=== PATIENT | female | born 1955 | race Caucasian/White ===

== ENCOUNTER → 2017-04-20 | Outpatient (CLI) | payer OTHER ==
--- NOTE | 2017-04-20 11:38 | WWHP ---
[facility] - HISTORY AND PHYSICAL DATE OF DICTATION: 04/20/2017 CHIEF COMPLAINT: The patient is here for her routine gynecologic exam and mammogram. HPI: This is a 62-year-old G2, P2, with an LMP of 2009. The patient is without gynecologic complaints and denies any postmenopausal bleeding. She states she has noticed white patches of skin, mostly in the inner thigh areas. She denies any irritation, itching, or redness in these areas. She also denies any vulvar itching. PAST MEDICAL HISTORY: Hypothyroidism, elevated cholesterol and gastroesophageal reflux disease. MEDICATIONS: 1. Crestor 5 mg daily. 2. Levothyroxine 100 mcg daily. 3. Ranitidine p.r.n. ALLERGIES: CODEINE. PAST SURGICAL HISTORY: Colonoscopy 2015 and 2007. 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 Hemorrhoid remove removed in 1991. 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 SOCIAL HISTORY: She denies tobacco, alcohol, and drug use. 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 FAMILY HISTORY: Father had an [place]. REVIEW OF SYSTEMS: She has lost about 3 pounds over the last year. She denies respiratory, cardiac or GI problems. PHYSICAL EXAM: Blood pressure 135/84, height 5 feet 10 inches, weight 180 pounds, temperature 98.1, pulse 65, BMI 26. This is a well-developed, well-nourished, white female, who is alert and oriented x3, in no acute distress. SKIN: Patient has slightly less pigmented skin on her face. She also has a various white macules on the skin which are well-demarcated and appear symmetrical. This is most noticed in the inner thigh where she has areas with diameter of approximately 3 to 4 cm. She also has various areas on her arms and legs which are non-pigmented, which are smaller with diameters of 1 to 2 cm. HEENT is otherwise within normal limits. Neck is supple without mass or thyromegaly. CHEST AND LUNGS: Clear to auscultation. HEART: Regular rate and rhythm. Breasts are without mass or discharge. Axillary exam is negative for adenopathy. BACK: Negative for CVA tenderness. ABDOMEN: Soft, nontender, without palpable masses. PELVIC EXAM: External genitalia also reveals a well-demarcated, non-pigmented area surrounding the vulva, perineum, and perianal areas. She denies any symptoms such as pruritus or irritation. There are no focal lesions. There is mild to moderate atrophy noted. Cervix and vagina reveal mild to moderate atrophy without lesions. There is no evidence of prolapse. Bladder is well-supported. There is no significant urethral mobility with cough or Valsalva. The uterus is mid-position, nongravid size and nontender. There are no palpable adnexal masses or tenderness. Rectovaginal exam is negative for mass or tenderness and is negative for occult blood. EXTREMITIES: Nontender. IMPRESSION: A 62-year-old menopausal female with probable vitiligo involving mostly the inner thigh and vulva, otherwise unremarkable gynecologic exam. PLAN: 1. Pap smear was deferred since she had a normal one last year. 2. Self breast examination was discussed. 3. Mammogram will be done today. 4. We have had long discussion regarding the skin changes involving the non-pigmented areas. I have given her a handout on vitiligo. I have recommended that she discuss this with a envelope machine operator. She is declining this at this time, but states she will let me know if her symptoms are worsening or the areas are increasing. 5. Osteoporosis prevention was discussed. She states she did have a bone density test of her ankle at some screening program. I have recommended bone density testing on the hips and low back and she states she will plan on doing this next year. 6. She will return in 1 year. MMODL / IJN: [id number] /
--- NOTE | 2017-04-21 12:44 | MM ---
Reason for exam: screening (asymptomatic). Last mammogram was performed 1 year ago. History: Patient is postmenopausal. Benign right mammotome panel of the right breast, March 14, 2012. Took progesterone for 3 years 6 months. Physical Findings: A clinical breast exam by your physician is recommended on an annual basis and results should be correlated with mammographic findings. MG 3D Screening Mammo W/Cad Bilateral CC and MLO view(s) were taken. XCCL view(s) were taken of the left breast. Prior study comparison: April 17, 2016, left breast MG 3d diag mammo w/cad LT. October 15, 2015, bilateral MG diagnostic mammo w CAD LELA. May 25, 2013, CAD bilateral diagnostic mammogram. There are scattered fibroglandular densities. Finding #1: There is diminished architectural distortion in the anterior position of the right breast consistent with a healing scar. Finding #2: There are a few typically benign round calcifications in both breasts. Previous mammotome biopsy in the right breast. There is a chronic nodularity in the right breast. There is no discrete abnormality. ASSESSMENT: Benign, BI-RAD 2 RECOMMENDATION: Routine screening mammogram of both breasts in 1 year.
== END | disposition home or self-care (01) ==
LOC: WWCWWP 10:00
PROVIDERS: ATTEND Obstetrics & Gynecology
DX: Z12.31 Encounter for screening mammogram for malignant neoplasm of breast (principal)
CPT/HCPCS: 77063; G0202

== ENCOUNTER → 2018-03-07 | Outpatient (CLI) | payer OTHER ==
--- NOTE | 2018-03-07 10:09 | US ---
EXAMINATION TYPE: US thyroid st tissue head/neck DATE OF EXAM: 03/07/2018 COMPARISON: NONE CLINICAL HISTORY: E03.9 Hypothyroidism. taking thyroid meds for years GLAND SIZE: Right Lobe: 2.6 x 0.9 x 1.1 cm Overall Parenchyma: heterogenous Left Lobe: 2.9 x 0.8 x 0.9 cm Overall Parenchyma: heterogeneous Isthmus Thickness: 0.2 cm NODULES RIGHT: # of nodules measured on right: 0 LEFT: # of nodules measured on left: 0 ISTHMUS: # of nodules measured in the isthmus: 0 Bilateral neck scanned, no evidence of lymphadenopathy. IMPRESSION: Glandular heterogeneity with diminutive thyroid lobes.
== END | disposition home or self-care (01) ==
LOC: RADUSWWP 08:54
PROVIDERS: ATTEND Family Medicine
DX: E03.9 Hypothyroidism, unspecified (principal)
CPT/HCPCS: 76536

== ENCOUNTER 2018-03-16 11:31 | Day surgery (SDC) | payer MEDICARE, OTHER ==
[2018-03-09 14:57] VITALS: BMI 25.8
[~2018-03-16 11:31] MED LIST: LACTATED RINGERS 1,000 ML IV SCH; MORPHINE SULFATE 4 MG/ML SYRINGE IV PRN; ceFAZolin IN SWFI 2 GM/20 ML SYRINGE IVP ONE
[2018-03-16 11:43] VITALS: TEMP 98.4
[2018-03-16] MEDS ORDERED: ONDANSETRON 4 MG/2 ML VIAL ONE (11:51)
[2018-03-16] MEDS ORDERED: LIDOCAINE 1% 20 ML VIAL (10MG/ML) FOR IV START INTRADERMA ONE (12:00)
[2018-03-16] MEDS ORDERED: DEXAMETHASONE SOD PHOSPHATE 10 MG/ML 1 ML VIAL IV ONE (12:03)
[2018-03-16] MEDS ORDERED: ePHEDrine SULFATE/0.9% NACL/PF 50 MG/5 ML SYRINGE IV ONE (12:49)
[2018-03-16] MEDS ORDERED: MIDAZOLAM 2 MG/2 ML VIAL ONE (12:49)
[2018-03-16] MEDS ORDERED: HYDROmorphone (PF) 1 MG/ML ONE (12:49)
[2018-03-16] MEDS ORDERED: fentaNYL (PF) 50 MCG/ML 2 ML AMP ONE (12:49)
[2018-03-16] MEDS ORDERED: PROPOFOL 10 MG/ML 20 ML VIAL IV ONE (12:49)
[2018-03-16] MEDS ORDERED: ROPIVACAINE 5 MG/ML 30 ML VIAL ONE (12:49)
[2018-03-16] MEDS ORDERED: SUCCINYLCHOLINE CHLORIDE 100 MG/5 ML SYR IV ONE (12:49)
[2018-03-16] MEDS ORDERED: KETOROLAC 30 MG/ML 1 ML VIAL ONE (12:49)
[2018-03-16] MEDS ORDERED: LIDOCAINE 1% INJ 10MG/ML (20 ML MDV) ONE (12:49)
[2018-03-16] MEDS ORDERED: LACTATED RINGERS 1,000 ML IV ONE (14:45)
[2018-03-16] MEDS ORDERED: ONDANSETRON 4 MG/2 ML VIAL IVP ONE (15:35)
[2018-03-16] MEDS: HYDROmorphone 0.5 MG/0.5 ML SYRINGE IVP PRN ×2 (15:38→15:45)
--- NOTE | 2018-03-16 16:02 | FL ---
EXAMINATION TYPE: FL guidance operating room, XR foot limited LT DATE OF EXAM: 03/16/2018 CLINICAL HISTORY: Left foot pain TECHNIQUE: Fluoroscopy. COMPARISON: None. FINDINGS/IMPRESSION: Fluoroscopic guidance was provided during procedure performed by Dr. Mccormick. A total of 55 seconds of fluoroscopic time was utilized during the procedure and 3 spot images was a cquired during modified lapidus of the left foot
[2018-03-16 18:12] VITALS: BP 163/91; PULSE 69; RESP 16
--- NOTE | 2018-03-16 19:21 | P.ONQ ---
Anesthesiology Proc Note - PNB - Peripheral Nerve Block Performed Left Popliteal Single Time Out Performed: Yes Procedure Start Time: 14:09 Procedure Stop Time: 14:13 Indication: Acute Post-Operative Pain, Requested by physician Sedation Type: Sedate with meaningful contact maintained Preparation: Sterile Prep Needle Size: 50mm (2") Needle Gauge: 21 Technique: Ultrasound Injectate: 0.5% Ropivacaine (see comment for volume) (ropi .5% 20cc) Blood Aspirated: No Pain Paresthesia on Injection Noted: No Resistance on Injection: Normal Events: Uneventful and Well Tolerated
--- NOTE | 2018-03-17 08:51 | P.OP ---
Date of Procedure: 03/16/18 Preoperative Diagnosis: 1. Recurrent left hallux valgus deformity with increased 1-2 intermetatarsal angle and hypermobile first ray Postoperative Diagnosis: Same Procedure(s) Performed: 1. Correction of left recurrent hallux valgus deformity with modified Lapidus procedure 2. Modified Fitzgerald procedure, left foot 3. Application of short leg splint by physician, left leg Anesthesia: THIERRYA Surgeon: Edgar Mccormick Prevention Rn #1: Jeffrey Quinn Estimated Blood Loss (ml): 20 IV fluids (ml): 900 Pathology: none sent Condition: stable Disposition: PACU Indications for Procedure: The patient is a very pleasant, previously healthy 63-year-old female was had a long-standing history of problems with both of her feet. She previously underwent a distal first metatarsal osteotomy and medial eminence resection on the left foot by a hse manager. She had minimal improvement in her deformity and continued problems. She came to me to discuss treatment. She had failed nonsurgical treatment and requested surgery. My recommendation was to correct her recurrent hallux valgus with a modified Lapidus procedure. Due to the aggressive nature of her prior medial eminence resection and having had a distal first metatarsal osteotomy we discussed potential limitations and the amount of correction that could be obtained and the risk of hallux varus. The patient agreed and understand these risks and decided to go forward with surgery. We discussed the most common potential risks and complications including but not limited to risks of anesthesia, superficial infection, deep infection, delayed wound healing, damage to local blood vessels or nerves, nonunion at the fusion site, malunion to the fusion site, synthetic hardware, under correction of the deformity resulting in a recurrent or persistent hallux valgus deformity, hallux varus deformity from overcorrection of the deformity, transfer metatarsalgia, chronic pain, chronic swelling, inability to regain preinjury level of function, generalized to satisfaction with surgery, DVT, PE, need for further surgery, and possibly loss of life or limb. The patient voiced her understanding of this and provided her verbal and written consent to go forward with surgery. Operative Findings: I was able to nicely reduce the 1.2 intermetatarsal angle but there was still a mild hallux valgus deformity. For fear of over correcting his deformity and giving her a hallux varus I elected not to perform a medial capsulorrhaphy or Quinn osteotomy. Description of Procedure: The patient was identified in preoperative holding and the correct left leg was marked with my initials. I reviewed the consent form with the patient and her . All their questions were answered. The patient was then brought back to the operating room purchase position on the OR table where a general anesthetic and preoperative antibiotics were administered. The left leg had a bump placed under the buttock internally rotating the leg to neutral. A tourniquet was applied to the proximal aspect of the left thigh. The right leg was secured to the table. All bony prominences were well-padded. The left leg was then prepped and draped in the standard sterile fashion. Prior to starting surgery timeout was performed identifying the correct patient, operative extremity, and procedure. The patient's leg was then elevated, exsanguinated with an Esmarch bandage, the tourniquet was inflated to 250 mmHg. I began by outlining a longitudinal incision centered between the first and second metatarsals. Skin incision was made a scalpel. Dissection was carried down carefully to the subcutaneous tissue with tenotomy scissors. The EHL tendon sheath was incised and retracted laterally. The capsule over the first TMT joint was sharply incised longitudinally in line with the skin incision. The first TMT joint was then released dorsally and plantarly to allow for correction of the deformity. I then turned my attention distally. A small incision was made in the first webspace. Dissection was carried down carefully to the subcutaneous tissue with tenotomy scissors. The lateral capsule and sesamoid suspensory ligament were sharply released and a varus force was applied to the first MTP joint releasing adhesions and contracted lateral tissues. Attention was then turned back to the first TMT joint. A fulcrum was placed between the base of the first and second metatarsal. The compression device from the set was then placed with 1 maurizio over the lateral border of the second metatarsal through a stab incision and the compression device over the medial aspect of the first metatarsal. The device was gently tightened reducing the one 2 intermetatarsal angle. It was pinned into place. Position of the first metatarsal was checked with fluoroscopy. Rotation was also controlled prior to tightening the device with a joystick. A joint finder was placed into the first TMT joint. The cutting jig was placed over the first MT joint and its position was verified with fluoroscopy. It was pinned into place and a small microsagittal saw was used to remove the base of the first metatarsal and medial cuneiform. The intermetatarsal reduction device was removed as well as the cutting jig. Pins were left in the medial cuneiform and first metatarsal. The distraction, compression jig was placed. The joint was gently distracted and the cut portions of the bone was removed. The base of the medial cuneiform and first metatarsal were perforated with a 2.0 mm drill bit to facilitate fusion. The compression jig was then tightened nicely opposing the bony services and correcting the hallux valgus deformity. A cannulated, partially threaded 3.0 mm screw was placed starting at the lateral base of the first metatarsal and extending into the medial cuneiform. The compression jig was removed. Dual plates were placed dorsally and medially. A cannulated 3.5 mm screw was placed across the intercuneiform joint. On x-ray the 1-2 in her metatarsal angle was nicely reduced and there was adequate correction of the hallux valgus angle. Clinically the toe appeared significantly improved with only a mild hallux valgus deformity. I contemplated performing a medial capsulorrhaphy or Quinn osteotomy to further correct the hallux valgus deformity but due to the prior aggressive medial eminence resection I worried about over correcting her and tipping her into hallux varus. At this point final fluoroscopic images were taken. The wound was copiously irrigated and closed in layers. I verified that all instrument, sponge, and sharp counts were correct. A sterile dressing was applied followed by a well-padded bulky Hunt splint. The patient was then awoken from her anesthetic, transferred to a gurney, and brought to PACU having tolerated the procedure well. Jeffrey Quinn PA-C was required as a skilled nurses assistant throughout the procedure.
== END 2018-03-16 18:35 | disposition home or self-care (01) ==
LOC: OR 11:31
PROVIDERS: ATTEND Orthopaedic Surgery
DX: M20.12 Hallux valgus (acquired), left foot (principal); M21.612 Bunion of left foot; M20.11 Hallux valgus (acquired), right foot; M62.462 Contracture of muscle, left lower leg; M62.461 Contracture of muscle, right lower leg; E03.9 Hypothyroidism, unspecified; M47.814 Spondylosis without myelopathy or radiculopathy, thoracic region; K21.9 Gastro-esophageal reflux disease without esophagitis; E78.00 Pure hypercholesterolemia, unspecified; E55.9 Vitamin D deficiency, unspecified; M19.90 Unspecified osteoarthritis, unspecified site; M47.16 Other spondylosis with myelopathy, lumbar region; Z79.890 Hormone replacement therapy; Z79.899 Other long term (current) drug therapy
CPT/HCPCS: 73620; 28297; 64450; J1100; J2405; J1170; J0690

== ENCOUNTER → 2019-01-03 | Outpatient (CLI) | payer MEDICARE ==
[2019-01-03 13:56] VITALS: BP 149/91; PULSE 74; RESP 18; TEMP 98.4; BMI 26.5
--- NOTE | 2019-01-03 14:58 | P.HPOB ---
History of Present Illness H&P Date: 01/03/19 Chief Complaint: The patient is here for her routine gynecologic exam and ma mmogram. This is a 63-year-old with an LMP of 2008. The patient states she has had to urinary tract infections over the past 3 months. She was also told that she has small amounts of blood in the urine when tested by her primary care doctor. She has an appointment to see her urologist, Dr. Steve. The patient denies any postmenopausal bleeding. She is sexually active. She has experienced vaginal dryness and has been using a lubricant with some improvement. Review of Systems She is getting about 5 pounds over the past one and a half years. She denies respiratory, cardiac and G.I. problems. She denies maltreatment or problems with falling. : she denies any significant problems with urinary leakage. Past Medical History Past Medical History: GERD/Reflux, Hyperlipidemia, Osteoarthritis (OA), Thyroid Disorder Additional Past Medical History / Comment(s): Hypothyroidism. 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 [place] Bladder sling procedure, right breast biopsy. Hemorrhoid surgery. Colonoscopy 2016(2nd). Past Anesthesia/Blood Transfusion Reactions: No Reported Reaction Past Psychological History: No Psychological Hx Reported Smoking Status: Never smoker Past Alcohol Use History: Rare (One per month) Past Drug Use History: None Reported Additional History: She has been since 1979 and is sexually active. 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 - Past Family History Mother Family Medical History: No Reported History Father Family Medical History: Myocardial Infarction (DC) Medications and Allergies Home Medications Medication Instructions Recorded Confirmed Type L.acidoph,Paracasei, B.lactis 1 each PO DAILY 01/28/16 01/03/19 History [Probiotic] Digestive Enzymes 1 tab PO DAILY 03/09/18 01/03/19 History Glucosamine Sulfate 500 mg PO DAILY 03/09/18 01/03/19 History Levothyroxine Sodium [Synthroid] 75 mcg PO QAM 03/09/18 01/03/19 History Magnesium Aspartate 400 mg PO DAILY 03/09/18 01/03/19 History Pitavastatin Calcium [Livalo] 2 mg PO Q48H 03/09/18 01/03/19 History Potassium Citrate 99 mg PO DAILY 03/09/18 01/03/19 History Ranitidine HCl [Zantac] 150 mg PO DAILY PRN 03/09/18 01/03/19 History Vitamin C Gummies 1 tab PO DAILY 03/09/18 01/03/19 History Vitamin D3/Vitamin K2 1 tab PO DAILY 03/09/18 01/03/19 History Nitrofurantoin Monohyd/M-Cryst 100 mg PO Q12HR 01/03/19 01/03/19 History [Macrobid] Allergies Allergy/AdvReac Type Severity Reaction Status Date / Time No Known Allergies Allergy Verified 03/16/18 11:53 Exam Vital Signs Temp Pulse Resp BP Pulse Ox 01/03/19 13:50 98.4 F 74 18 149/91 99 Intake and Output 01/02/19 01/03/19 01/03/19 22:59 06:59 14:59 Other: Weight 83.915 kg Height 5'10", weight 185 pounds, BMI 26.5. This is a well-developed well-nourished white female who is alert and oriented times 3 in no acute distress. HEENT: Within normal limits. NECK: Supple without mass or thyromegaly. CHEST AND LUNGS: Clear to auscultation. HEART: Regular rate and rhythm. BREASTS: Are without mass or discharge. AXILLARY EXAM: Negative for adenopathy. BACK: Negative for CVA tenderness. ABDOMEN: Soft, nontender, without palpable masses. PELVIC EXAM: external genitalia reveals a well demarcated, non-pigmented area involving the vulva, perineum, and perianal areas. This appears similar to her previous exam and is most consistent with vitiligo. There is moderate vulvar atrophy. Cervix and vagina appear normal with mild to moderate atrophy. There is no unusual discharge. There is no evidence of prolapse. The uterus is midposition, nongravid size and nontender. There are no palpable adnexal masses or tenderness. RECTAL EXAM: rectovaginal exam is negative for mass or tenderness and is negative for occult blood. EXTREMITIES: Nontender. Skin: the patient has less pigmented areas on various parts of her body which is most noticeable on the vulva and inner thighs where there are less pigmented areas measuring 3 to 4 cm. These findings are consistent with her previous examination. IMPRESSION: 1. 63-year-old menopausal female with vitiligo involving different areas of her body including the external vulva and inner thighs. Stable from previous exam. 2. Moderate genital atrophy which may be causing vaginal dryness with sexual intercourse and may also increase the risk for urinary tract infections. 3. Two urinary tract infections over the past 3 months. She is currently taking Macrobid for this. 4. Elevated blood pressure. 5. History of osteopenia PLAN: 1. Pap smear was performed. 2. Self breast awareness was discussed with the patient. 3. Screening mammogram will be done today. 4. Trial of Premarin vaginal cream. She is to use to 1 g intravaginally twice weekly. She will also put a small amount near the urinary opening at those times. The electronic prescription will be sent to [facility] pharmacy in [place]. 5. She will follow-up with her urologist for micro hematuria which was diagnosed by her primary care physician. She has an appointment for this 6. She does not get flu shots in the fall. I have asked her to reconsider this. 7. I recommended that she checked her blood pressures at home on a regular basis since she does have a blood pressure cuff. She will follow-up with her primary care doctor for blood pressure elevations. 8.Osteoporosis prevention was discussed. I have stressed the importance of adequate calcium, vitamin D and regular exercise. Recommended amounts of calcium and vitamin D were also discussed. Bone density testing will be done today. 9. The patient was advised to return in 1-2 years for her well woman examination.
--- NOTE | 2019-01-03 15:25 | BD ---
EXAMINATION TYPE: Axial Bone Density DATE OF EXAM: 01/03/2019 COMPARISON: NONE CLINICAL HISTORY: post menopausal Height: 5'8 1/2 Weight: 181 FRAX RISK QUESTIONS: History of Fracture in Adulthood: y Secondary Osteoporosis: RISK FACTORS HISTORY OF: Family History of Osteoporosis: y Diet low in dairy products/other sources of calcium: y Postmenopausal woman: y If Premenopausal, do you have irregular periods: MEDICATIONS: Thyroid Medications: Which medication: Levothyroxine How Lon years Additional Medications: cholesterol Additional History: EXAM MEASUREMENTS: Bone mineral densitometry was performed using the [employer] System. Bone mineral density as measured about the Lumbar spine is: ----- L1-L4(G/cm2): 1.106 T Score Values are as follows: ----- L2: -0.9 ----- L3: -0.5 ----- L4: -0.3 ----- L1-L4: -0.6 Bone mineral density about the R hip (g/cm2): 0.802 Bone mineral density about the L hip (g/cm2): 0.733 T Score values are as follows: -----R Neck: -1.7 -----L Neck: -2.2 -----R Total: -2.0 -----L Total: -2.0 IMPRESSION: Osteopenia (T Score between -2.5 and -1). There is slightly increased risk of fracture and the patient may be considered for treatment. Re-Screen 2-5 years. NOTE: T-SCORE=SD OF THE YOUNG ADULT MEAN.
--- NOTE | 2019-01-04 14:46 | MM ---
Reason for exam: screening (asymptomatic). Last mammogram was performed 1 year and 9 months ago. History: Patient is postmenopausal. Benign right mammotome panel of the right breast, March 14, 2012. Took progesterone for 3 years 6 months. MG 3D Screening Mammo W/Cad Bilateral CC and MLO view(s) were taken. Prior study comparison: April 20, 2017, bilateral MG 3d screening mammo w/cad. April 17, 2016, left breast MG 3d diag mammo w/cad LT. There are scattered fibroglandular densities. There are benign-appearing bilateral breast calcifications. No suspicious abnormality. There is post biopsy changes in the right breast. No significant new finding when compared with prior studies. ASSESSMENT: Benign, BI-RAD 2 RECOMMENDATION: Routine screening mammogram of both breasts in 1 year.
--- NOTE | 2019-01-11 10:45 | P.PN ---
Progress Note - Text Progress Note Date: 01/11/19 OUTPATIENT FOLLOW-UP NOTE TEST(S)/RESULTS: results from 01/03/2019 include benign mammogram and bone density testing showing osteopenia. METHOD OF NOTIFICATION: the patient was notified by phone. PATIENT COMMENTS: the patient states her previous bone density test was done at [facility]. DIAGNOSIS: benign mammogram and osteopenia. DISCUSSION: Pap smear result is pending. I have stressed the importance of adequate calcium, vitamin D and regular exercise. PLAN: we will plan on repeating the bone density testing in 2 to 3 years. Await Pap smear results. I will call the patient on the Pap smear results after it has been reviewed.
== END | disposition home or self-care (01) ==
LOC: WWCWWP 13:44
PROVIDERS: ATTEND Obstetrics & Gynecology
DX: Z12.31 Encounter for screening mammogram for malignant neoplasm of breast (principal); Z78.0 Asymptomatic menopausal state
CPT/HCPCS: 77063; 77067; 77080

== ENCOUNTER → 2019-02-02 | Outpatient (CLI) | payer MEDICARE ==
--- NOTE | 2019-02-02 09:07 | CT ---
EXAMINATION TYPE: CT abdomen pelvis wo con DATE OF EXAM: 02/02/2019 HISTORY: Abdominal pain, stones in bladder CT DLP: 579.5 mGycm. Automated Exposure Control for Dose Reduction was Utilized. TECHNIQUE: CT scan of the abdomen and pelvis is performed without oral or IV contrast. COMPARISON: NONE FINDINGS: Within the limitations of a non-contrast study, the following observations are made. LUNG BASES: No significant abnormality is appreciated. LIVER/GB: Two dependent calcified gallstones in gallbladder. No surrounding inflammatory changes. Sca ttered subcentimeter low dense lesions throughout the liver are too small to further characterize. Th ere is 1.3 cm lesion subcapsular level anteriorly image 26 consistent with simple thin-walled cyst. PANCREAS: No significant abnormality is seen. SPLEEN: No significant abnormality is seen. ADRENALS: No significant abnormality is seen. KIDNEYS: No renal calculi or hydronephrosis. No intraluminal calculus in bladder. Scattered pelvic ph leboliths are present bilaterally. BOWEL: Evaluation bowel slightly suboptimal secondary to lack of enteric contrast. Stomach is poorly distended and thus suboptimally evaluated. Normal-appearing appendix ascends from cecum slightly low- lying in the right pelvis. There are few diverticula in the sigmoid colon. There is no CT evidence fo r acute diverticulitis. GENITAL ORGANS: Anteverted uterus is seen. There is 2.0 cm rounded low dense lesion right ovary axial image 117. Left ovary is unremarkable axial image 123. LYMPH NODES: No greater than 1cm abdominal or pelvic lymph nodes are appreciated. OSSEOUS STRUCTURES: Mild facet arthropathy lower lumbar levels. OTHER: No significant additional abnormality is seen. IMPRESSION: 1. No acute finding is identified to account for patient symptoms. 2. No renal or bladder calculi. 3. Gallstones without CT evidence for acute cholecystitis. 4. Sigmoid colonic diverticula without CT evidence for acute diverticulitis. 5. There is 2.0 cm low dense lesion right ovary, this is abnormal finding in a postmenopausal female, follow-up pelvic ultrasound advised to better evaluate and characterize.
== END | disposition home or self-care (01) ==
LOC: RADCTMAIN 08:03
PROVIDERS: ATTEND Family Medicine
DX: K80.20 Calculus of gallbladder without cholecystitis without obstruction (principal); K57.30 Diverticulosis of large intestine without perforation or abscess without bleeding; N83.8 Other noninflammatory disorders of ovary, fallopian tube and broad ligament; Z78.0 Asymptomatic menopausal state
CPT/HCPCS: 74176

== ENCOUNTER → 2019-02-13 | Outpatient (CLI) | payer MEDICARE ==
--- NOTE | 2019-02-13 08:22 | US ---
EXAMINATION TYPE: US pelvic complete DATE OF EXAM: 02/13/2019 COMPARISON: CT February 02, 2019 CLINICAL HISTORY: N83.9 Lesion of Ovary. Recent CT showed right ov cyst, LLQ pain for a few months, b ladder sling sx, no h/o cysts previous that patient was aware of TECHNIQUE: TA. Transabdominal sonographic images of the pelvis were acquired. Date of LMP: 10yrs ago EXAM MEASUREMENTS: Uterus: 7.9 x 4.8 x 3.7 cm Endometrial Stripe: 0.3 cm Right Ovary: 1.9 x 2.6 x 2.0 cm Left Ovary: 1.9 x 1.8 x 1.9 cm 1. Uterus: Anteverted wnl 2. Endometrium: wnl 3. Right Ovary: 2.0cm simple appearing cyst 4. Left Ovary: wnl 5. Bilateral Adnexa: wnl 6. Posterior cul-de-sac: wnl Anteverted uterus is redemonstrated. Endometrial stripe within normal limits. No free fluid. Right ov axel shows 2.0 cm simple appearing thin walled cyst on current study which correlates with CT finding. Left ovary is within normal limits. IMPRESSION: Confirmation of 2.0 cm simple appearing thin-walled cyst or cystic lesion within right ov axel, this is abnormal finding in postmenopausal female, at minimum annual ultrasound surveillance is advised.
== END | disposition home or self-care (01) ==
LOC: RADUSWWP 07:25
PROVIDERS: ATTEND Family Medicine
DX: N83.291 Other ovarian cyst, right side (principal)
CPT/HCPCS: 76856

== ENCOUNTER → 2019-05-17 | Outpatient (CLI) | payer MEDICARE | END | disposition home or self-care (01) | LOC: LABWHC1 09:54 | PROVIDERS: ATTEND Internal Medicine Endocrinology, Diabetes & Metabolism | DX: E03.8 Other specified hypothyroidism (principal) | CPT/HCPCS: 36415; 84443 ==

== ENCOUNTER → 2019-11-07 | Outpatient (CLI) | payer MEDICARE | END | disposition home or self-care (01) | LOC: LABWHC1 10:34 | PROVIDERS: ATTEND Internal Medicine Endocrinology, Diabetes & Metabolism | DX: E03.8 Other specified hypothyroidism (principal); E03.9 Hypothyroidism, unspecified | CPT/HCPCS: 36415; 84443 ==

== ENCOUNTER → 2019-11-08 | Outpatient (CLI) | payer MEDICARE ==
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
== END | disposition home or self-care (01) ==
LOC: RADMRIMAIN 12:42
PROVIDERS: ATTEND Family Medicine
DX: M99.71 Connective tissue and disc stenosis of intervertebral foramina of cervical region (principal); M48.02 Spinal stenosis, cervical region; M50.223 Other cervical disc displacement at C6-C7 level; M43.12 Spondylolisthesis, cervical region
CPT/HCPCS: 72141

== ENCOUNTER → 2020-01-12 | Outpatient (CLI) | payer MEDICARE | END | disposition home or self-care (01) | LOC: LABWHC1 12:42 | PROVIDERS: ATTEND Internal Medicine Endocrinology, Diabetes & Metabolism | DX: E03.8 Other specified hypothyroidism (principal) | CPT/HCPCS: 36415; 84443 ==

== ENCOUNTER → 2020-02-20 | Outpatient (CLI) | payer MEDICARE ==
[2020-02-20 09:26] VITALS: BP 141/94; PULSE 68; RESP 18; TEMP 98.2
--- NOTE | 2020-02-20 10:02 | P.HPOB ---
History of Present Illness H&P Date: 02/20/20 Chief Complaint: The patient is here for her routine gynecologic exam and ma mmogram. This is a 65-year-old with an LMP of 2008. The patient has been using Premarin vaginal cream for vaginal dryness with intercourse and because of recurrent UTIs. She states it has helped with the recurrent UTIs. She did try to go without the Premarin vaginal cream briefly, but developed a UTI during that time. She has resumed using the Premarin vaginal cream. She denies any discomfort from the known right ovarian cyst which has been followed conservatively. She denies any postmenopausal bleeding. She is without gynecologic complaints. Review of Systems The patient's weight has been stable over the last year. She denies respiratory, cardiac, or G.I. problems. Past Medical History Past Medical History: GERD/Reflux, Hyperlipidemia, Osteoarthritis (OA), Thyroid Disorder Additional Past Medical History / Comment(s): Hypothyroidism. Osteopenia. 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 [place] Bladder sling procedure, right breast biopsy. Hemorrhoid surgery. Colonoscopy 2016(2nd). Past Anesthesia/Blood Transfusion Reactions: No Reported Reaction Past Psychological History: No Psychological Hx Reported Smoking Status: Never smoker Past Alcohol Use History: Rare (1/Month) Past Drug Use History: None Reported Additional History: She has been since 1979 and is sexually active. 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 - Past Family History Mother Family Medical History: No Reported History Father Family Medical History: Myocardial Infarction ([place]) Medications and Allergies Home Medications Medication Instructions Recorded Confirmed Type L.acidoph,Paracasei, B.lactis 1 each PO DAILY 01/28/16 02/20/20 History [Probiotic] Digestive Enzymes 1 tab PO DAILY 03/09/18 02/20/20 History Glucosamine Sulfate 500 mg PO DAILY 03/09/18 02/20/20 History Levothyroxine Sodium [Synthroid] 100 mcg PO QAM 03/09/18 02/20/20 History Magnesium Aspartate 400 mg PO DAILY 03/09/18 02/20/20 History Pitavastatin Calcium [Livalo] 2 mg PO Q48H 03/09/18 02/20/20 History Potassium Citrate 99 mg PO DAILY 03/09/18 02/20/20 History Vitamin C Gummies 1 tab PO DAILY 03/09/18 02/20/20 History Vitamin D3/Vitamin K2 1 tab PO DAILY 03/09/18 02/20/20 History Estrogens, Conjugated Cream 1 gram VAGINAL DIRECTED #1 tube 01/03/19 02/20/20 Rx [Premarin Cream] Nitrofurantoin Monohyd/M-Cryst 100 mg PO Q12HR 01/03/19 02/20/20 History [Macrobid] Famotidine [Pepcid] 0 mg PO DAILY PRN 02/20/20 02/20/20 History RABEprazole SODIUM [Aciphex] 20 mg PO DAILY 02/20/20 02/20/20 History Allergies Allergy/AdvReac Type Severity Reaction Status Date / Time No Known Allergies Allergy Verified 02/20/20 09:31 Exam Vital Signs Temp Pulse Resp BP Pulse Ox 02/20/20 09:21 98.2 F 68 18 141/94 100 Intake and Output 02/19/20 02/20/20 02/20/20 22:59 06:59 14:59 Other: Weight 84.368 kg Height 5 feet 10 inches, weight 186 pounds, BMI 26.7. This is a well-developed well-nourished white female who is alert and oriented times 3 in no acute distress. HEENT: Within normal limits. NECK: Supple without mass or thyromegaly. CHEST AND LUNGS: Clear to auscultation. HEART: Regular rate and rhythm. BREASTS: Are without mass or discharge. AXILLARY EXAM: Negative for adenopathy. BACK: Negative for CVA tenderness. ABDOMEN: Soft, nontender, without palpable masses. PELVIC EXAM: The patient has less pigmented areas on the vulva and inner thighs. The inner thigh nonpigmented areas measure between 3 and 4 cm and are stable from her previous examination. She denies any pruritus or irritation from this areas. Cervix and vagina appear normal with mild atrophy. There is no unusual discharge. There is no evidence of prolapse. The uterus is midposition, nongravid size and nontender. There are no palpable adnexal masses or tendern ess. RECTAL EXAM: rectovaginal exam is negative for mass or tenderness and is negative for occult blood. EXTREMITIES: Nontender. IMPRESSION: 1. 65-year-old menopausal female with vitiligo involving the external vulva and inner thighs which is stable from her previous examination. 2. Improvement of recurrent urinary tract infections with Premarin vaginal cream. This is also used for vaginal dryness with sexual intercourse. 3. History of osteopenia. 4. Asymptomatic right ovarian cyst after the menopause measuring approximately 2.0 cm last year by pelvic ultrasound. PLAN: 1. Pap smear was deferred since she had a normal one on 01/03/2019. 2. Self breast awareness was discussed with the patient. 3. Screening mammogram will be done today. 4. Osteoporosis prevention was discussed. I have stressed the importance of adequate calcium, vitamin D and regular exercise. Recommended amounts of calcium and vitamin D were also discussed. We will repeat bone density testing in 1 year. 5. I recommended repeating the pelvic ultrasound to reevaluate the right ovarian cyst. The order slip was given to the patient for this. 6. She was advised to return in one year for her annual well woman exam.
--- NOTE | 2020-02-21 11:35 | MM ---
Reason for exam: screening (asymptomatic). Last mammogram was performed 1 year and 2 months ago. History: Patient is postmenopausal. Benign right mammotome panel of the right breast, March 14, 2012. Took progesterone for 3 years 6 months. Taking other hormone for 1 year 6 months. Physical Findings: A clinical breast exam by your physician is recommended on an annual basis and results should be correlated with mammographic findings. MG 3D Screening Mammo W/Cad Bilateral CC and MLO view(s) were taken. Prior study comparison: January 03, 2019, bilateral MG 3d screening mammo w/cad. April 20, 2017, bilateral MG 3d screening mammo w/cad. There are scattered fibroglandular densities. There are benign appearing round calcifications bilaterally. Previous mammotome biopsy in the right breast. There is chronic nodularity in the right breast inferior position. Asymmetric breast tissue right clip stable from 2016. There is no discrete abnormality. ASSESSMENT: Benign, BI-RAD 2 RECOMMENDATION: Routine screening mammogram of both breasts in 1 year.
== END | disposition home or self-care (01) ==
LOC: WWCWWP 09:14
PROVIDERS: ATTEND Obstetrics & Gynecology
DX: Z12.31 Encounter for screening mammogram for malignant neoplasm of breast (principal)
CPT/HCPCS: 77063; 77067

== ENCOUNTER → 2020-04-04 | Outpatient (CLI) | payer MEDICARE ==
--- NOTE | 2020-04-04 17:01 | US ---
EXAMINATION TYPE: US pelvic complete DATE OF EXAM: 04/04/2020 COMPARISON: US pelvis 02/14/2020. CT abdomen pelvis 02/02/2019. CLINICAL HISTORY: N83 Ovarian Cyst Rt Side. TECHNIQUE: . Transabdominal sonographic images of the pelvis were acquired. Date of LMP: Age 53 EXAM MEASUREMENTS: Uterus: 8.0 x 3.3 x 3.7 cm Endometrial Stripe: 0.2 cm Right Ovary: 2.5 x 2.1 x 2.0 cm Left Ovary: 1.9 x 1.1 x 1.3 cm 1. Uterus: Anteverted normal. 2. Endometrium: Normal. 3. Right Ovary: Simple unilocular benign-appearing cyst measures 1.7 x 1.7 x 1.8 cm. Previously daniel ured 2cm on 02/14/2020 comparison. 4. Left Ovary: Normal. 5. Bilateral Adnexa: Normal. 6. Posterior cul-de-sac: Normal. IMPRESSION: 1. Simple benign appearing 1.8 cm right ovarian cyst. Per The Society of Radiologists in Ultrasound 2 019 recommendations, no additional follow-up is recommended. 2. Otherwise unremarkable pelvic ultrasound.
--- NOTE | 2020-04-09 18:21 | P.PN ---
Progress Note - Text Progress Note Date: 04/09/20 OUTPATIENT FOLLOW-UP NOTE TEST(S)/RESULTS: Pelvic ultrasound done on 04/04/2020 shows a right simple benign appearing ovarian cyst measuring 1.8 cm. METHOD OF NOTIFICATION: Was notified by phone. PATIENT COMMENTS: [] DIAGNOSIS: 1.8 cm right ovarian simple cyst in a postmenopausal female. DISCUSSION: This cyst has been followed since last year and was originally approximately 2.0 cm. PLAN: Repeat cervical ultrasound in one year. If smaller at that time, consider discontinuing yearly ultrasounds.
== END | disposition home or self-care (01) ==
LOC: RADUSWWP 14:36
PROVIDERS: ATTEND Obstetrics & Gynecology
DX: N83.291 Other ovarian cyst, right side (principal)
CPT/HCPCS: 76856

== ENCOUNTER → 2020-04-24 | Outpatient (CLI) | payer MEDICARE | END | disposition home or self-care (01) | LOC: LABWHC1 15:32 | PROVIDERS: ATTEND Internal Medicine Endocrinology, Diabetes & Metabolism | DX: E03.8 Other specified hypothyroidism (principal) | CPT/HCPCS: 36415; 84443 ==

== ENCOUNTER → 2020-10-03 | Outpatient (CLI) | payer MEDICARE | END | disposition home or self-care (01) | LOC: LABWHC1 12:32 | PROVIDERS: ATTEND Internal Medicine Endocrinology, Diabetes & Metabolism | DX: E03.8 Other specified hypothyroidism (principal) | CPT/HCPCS: 36415; 84443 ==

== ENCOUNTER → 2021-03-12 | Outpatient (CLI) | payer MEDICARE ==
[2021-03-12 09:15] VITALS: BP 144/84; PULSE 81; RESP 18; TEMP 98.6
--- NOTE | 2021-03-12 10:22 | P.HPOB ---
History of Present Illness H&P Date: 03/12/21 Chief Complaint: The patient is here for her routine gynecologic exam. This is a 66-year-old with an LMP of 2008. The patient is without gynecologic complaints and denies any postmenopausal bleeding. The patient had a surgery earlier this year and noticed a slight rash in her groin and thigh areas and was not sure if this was related to Premarin vaginal cream use, so she discontinued it. She has continued to notice some rash in those areas, but it is improving. She would like to continue to hold the Premarin vaginal cream usage at this time. Review of Systems Weight has been stable. She denies respiratory, cardiac and G.I. problems. She denies maltreatment or problems with falling. : she denies any significant problems with urinary leakage. Past Medical History Past Medical History: GERD/Reflux, Hyperlipidemia, Osteoarthritis (OA), Thyroid Disorder Additional Past Medical History / Comment(s): Hypothyroidism. Osteopenia. 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 [place] Bladder sling procedure, right breast biopsy. Hemorrhoid surgery. Neck surgery. Colonoscopy 2016(2nd). Past Anesthesia/Blood Transfusion Reactions: No Reported Reaction Past Psychological History: No Psychological Hx Reported Smoking Status: Never smoker Past Alcohol Use History: Rare (1 per year) Past Drug Use History: None Reported Additional History: She has been since 1979 and is sexually active. 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 - Past Family History Mother Family Medical History: No Reported History Father Family Medical History: Myocardial Infarction ([place]) Medications and Allergies Home Medications Medication Instructions Recorded Confirmed Type L.acidoph,Paracasei, B.lactis 1 each PO DAILY 01/28/16 03/12/21 History [Probiotic] Digestive Enzymes 1 tab PO DAILY 03/09/18 03/12/21 History Glucosamine Sulfate 500 mg PO DAILY 03/09/18 03/12/21 History Levothyroxine Sodium [Synthroid] 100 mcg PO QAM 03/09/18 03/12/21 History Magnesium Aspartate 400 mg PO DAILY 03/09/18 03/12/21 History Potassium Citrate 99 mg PO DAILY 03/09/18 03/12/21 History Vitamin C Gummies 1 tab PO DAILY 03/09/18 03/12/21 History Vitamin D3/Vitamin K2 1 tab PO DAILY 03/09/18 03/12/21 History Famotidine [Pepcid] 0 mg PO DAILY PRN 02/20/20 03/12/21 History RABEprazole SODIUM [Aciphex] 20 mg PO DAILY 02/20/20 03/12/21 History Allergies Allergy/AdvReac Type Severity Reaction Status Date / Time No Known Allergies Allergy Verified 03/12/21 09:06 Exam Vital Signs Temp Pulse Resp BP Pulse Ox 03/12/21 09:08 98.6 F 81 18 144/84 99 Intake and Output 03/11/21 03/12/21 03/12/21 22:59 06:59 14:59 Other: Weight 85.275 kg Height 5 feet 10 inches, weight 188 pounds, BMI 27.0. This is a well-developed well-nourished white female who is alert and oriented times 3 in no acute distress. HEENT: Within normal limits. NECK: Supple without mass or thyromegaly. CHEST AND LUNGS: Clear to auscultation. HEART: Regular rate and rhythm. BREASTS: Are without mass or discharge. AXILLARY EXAM: Negative for adenopathy. There is a small 1.5 cm lipoma on the inner arm bordering the axilla. This has a benign appearance and is soft and nontender and not inflamed. 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 BACK: Negative for CVA tenderness. ABDOMEN: Soft, nontender, without palpable masses. PELVIC EXAM: The external genitalia has less pigmented areas involving the vulva and perineal areas. These do not appear inflamed or erythematous. There are no focal lesions noted. She also has less pigmented areas on the inner thighs. These areas on the inner thighs measuring approximately 3-4 cm and are stable from her previous exam. She denies any pruritus or irritation from these areas. Cervix and vagina appear normal with mild atrophy. The cervix is somewhat stenotic secondary to atrophy There is no unusual discharge. There is no evidence of prolapse. The uterus is midposition, nongravid size and nontender. There are no palpable adnexal masses or tenderness. RECTAL EXAM: rectovaginal exam is negative for mass or tenderness and is negative for occult blood. EXTREMITIES: Nontender. IMPRESSION: 1. 66-year-old menopausal female with vitiligo involving the external vulva and inner thighs which is stable from her previous examination. 2. History of osteopenia. 3. History of postmenopausal right ovarian cyst measuring 1.8 cm by ultrasound one year ago. This is asymptomatic. 4. The patient had previously been using Premarin vaginal cream for vaginal dryness and recurrent urinary tract infections. She is currently not using this. I doubt that the rash that she noticed on her thighs earlier in the year is related to the Premarin vaginal cream. She will call to let me know if she wants to restart the Premarin vaginal cream. PLAN: 1. Pap smear was performed. If this one is negative we will plan on discontinuing Pap smears. She has no history of cervical neoplasia and this will give us 3 negative Pap smears during the past 10 years. 2. Self breast awareness was discussed with the patient. We have also discussed symptoms associated with inflammatory breast cancer. 3. Screening mammogram is scheduled for 03/18/2021. The order slip was given t o the patient for this. 4. Osteoporosis prevention was discussed. I have stressed the importance of adequate calcium, vitamin D and regular exercise. Recommended amounts of calcium and vitamin D were also discussed. I recommended repeating bone density testing. The order slip was given the patient for this. 5. We will again do a yearly pelvic ultrasound because of her postmenopausal ovarian cyst. The order slip was given to the patient for this. 6. She has received the [employer] Covid vaccination. She does not plan on getting a flu shot this fall. I have asked her to reconsider this and we have discussed reasons why this is important. 7. I have asked her to have the pattern grader supervisor examine the vitiligo on the inner thighs and vulva at her appointment this upcoming week. 8. She was advised to return in one year for her annual well woman exam.
== END ==
LOC: WWCWWP 08:54
PROVIDERS: ATTEND Obstetrics & Gynecology
DX: Z12.31 Encounter for screening mammogram for malignant neoplasm of breast (principal); Z01.419 Encounter for gynecological examination (general) (routine) without abnormal findings; L80 Vitiligo; N89.8 Other specified noninflammatory disorders of vagina; E78.5 Hyperlipidemia, unspecified; E03.9 Hypothyroidism, unspecified; M19.90 Unspecified osteoarthritis, unspecified site; Z87.39 Personal history of other diseases of the musculoskeletal system and connective tissue; Z87.440 Personal history of urinary (tract) infections; K21.9 Gastro-esophageal reflux disease without esophagitis; Z79.899 Other long term (current) drug therapy

== ENCOUNTER → 2021-03-18 | Outpatient (CLI) | payer MEDICARE ==
--- NOTE | 2021-03-20 13:48 | MM ---
Reason for exam: screening (asymptomatic). Last mammogram was performed 1 year and 1 month ago. History: Patient is postmenopausal. Benign right mammotome panel of the right breast, March 14, 2012. Took progesterone for 3 years 6 months. Taking other hormone for 1 year 6 months. Physical Findings: A clinical breast exam by your physician is recommended on an annual basis and results should be correlated with mammographic findings. MG 3D Screening Mammo W/Cad Bilateral CC and MLO view(s) were taken. Prior study comparison: February 20, 2020, bilateral MG 3d screening mammo w/cad. January 03, 2019, bilateral MG 3d screening mammo w/cad. There are scattered fibroglandular densities. No significant changes when compared with prior studies. ASSESSMENT: Benign, BI-RAD 2 RECOMMENDATION: Routine screening mammogram of both breasts in 1 year.
== END | disposition home or self-care (01) ==
LOC: RADMAMWWP 13:08
PROVIDERS: ATTEND Obstetrics & Gynecology
DX: Z12.31 Encounter for screening mammogram for malignant neoplasm of breast (principal); Z78.0 Asymptomatic menopausal state
CPT/HCPCS: 77063; 77067

== ENCOUNTER → 2021-04-02 | Outpatient (CLI) | payer MEDICARE | END | disposition home or self-care (01) | LOC: LABWHC1 16:03 | PROVIDERS: ATTEND Internal Medicine Endocrinology, Diabetes & Metabolism | DX: E03.8 Other specified hypothyroidism (principal) | CPT/HCPCS: 36415; 84443 ==

== ENCOUNTER → 2021-04-11 | Outpatient (CLI) | payer MEDICARE ==
--- NOTE | 2021-04-11 15:44 | US ---
EXAMINATION TYPE: US pelvic complete DATE OF EXAM: 04/11/2021 COMPARISON: NONE CLINICAL HISTORY: N83.0 RT ovarian cyst. Follow up on right ovarian cyst, G2, P2 TECHNIQUE: Transabdominal (TA). Transabdominal sonographic images of the pelvis were acquired. Date of LMP: At age 50 EXAM MEASUREMENTS: Uterus: 8.4 x 4.3 x 2.9 cm Endometrial Stripe: 0.3cm Right Ovary: 2.0 x 2.0 x 1.9 cm Left Ovary: 2.5 x 1.4 x 1.7 cm 1. Uterus: Anteverted wnl 2. Endometrium: Echogenic 3. Right Ovary: Cystic area 4. Left Ovary: Hypoehoic Spectral, color and waveform doppler imaging shows good arterial and venous flow within the ovaries ; there is no evidence for ovarian torsion. 5. Bilateral Adnexa: wnl 6. Posterior cul-de-sac: wnl Right ovarian cyst seen on prior exam 1.6 x 1.6 x 1.7 IMPRESSION: 1. Right ovarian cyst.
== END | disposition home or self-care (01) ==
LOC: RADUSWWP 14:22
PROVIDERS: ATTEND Obstetrics & Gynecology
DX: N83.201 Unspecified ovarian cyst, right side (principal)
CPT/HCPCS: 76856

== ENCOUNTER → 2021-09-23 | Outpatient (CLI) | payer MEDICARE ==
--- NOTE | 2021-09-24 08:40 | BD ---
EXAMINATION TYPE: Axial Bone Density DATE OF EXAM: 09/23/2021 COMPARISON: NONE CLINICAL HISTORY: 66 year old Female. ICD-10 CODE: Z78.0 post menopausal Height: 69 Weight: 182.9 FRAX RISK QUESTIONS: Alcohol (3 or more units per day): no Family History (Parent hip fracture): no Glucocorticoids (More than 3mos): no (Ex: prednisone, prednisolone, methylprednisolone, dexamethasone, and hydrocortisone). History of Fracture in Adulthood: yes Secondary Osteoporosis: 1. Type 1 Diabetes: no 2. Hyperthyroidism: no 3. Menopause before 45: no 4. Malnutrition: no 5. Chronic liver disease: no Rheumatoid Arthritis: no Current Tobacco Use: no RISK FACTORS HISTORY OF: Surgery to Spine/Hip(right/left)/Wrist (right/left): c spine Family History of Osteoporosis: yes Active: yes Diet low in dairy products/other sources of calcium: no Postmenopausal woman: yes Take estrogen and/or progesterone medications: yes Lost more than 2 inches in height since high school: no MEDICATIONS: Thyroid Medications: synthroid How Long: since age 43 Additional History: EXAM MEASUREMENTS: Bone mineral densitometry was performed using the [employer] System. Bone mineral density as measured about the Lumbar spine is: ----- L1-L4(G/cm2): 1.089 T Score Values are as follows: ----- L1: -1.5 ----- L2: -0.6 ----- L3: -0.5 ----- L4: -0.6 ----- L1-L4: -0.8 Bone mineral density has: decreased -0.4 % since study of: 01.03.2019 Bone mineral density about the R hip (g/cm2): 0.808 Bone mineral density about the L hip (g/cm2): 0.773 T Score values are as follows: -----R Neck: -1.7 -----L Neck: -1.9 -----R Total: -1.9 -----L Total: -1.8 Bone mineral density has: increased 2.4 % since study of: 01.03.2019 FRAX%s: The graph provided illustrates a 17.9% chance for a major osteoporotic fx and a 3.0% chance f or the hips probability for fx in 10 years time. IMPRESSION: Osteopenia bilateral femora NOTE: T-SCORE=SD OF THE YOUNG ADULT MEAN.
--- NOTE | 2021-09-24 13:49 | P.PN ---
Progress Note - Text Progress Note Date: 09/24/21 OUTPATIENT FOLLOW-UP NOTE TEST(S)/RESULTS: Bone density test done on 09/23/2021 shows stable osteopenia. METHOD OF NOTIFICATION: The patient was notified by phone. PATIENT COMMENTS: DIAGNOSIS: Stable osteopenia. DISCUSSION: I have stressed the importance of getting adequate calcium, vitamin D, and regular exercise. PLAN: Repeat bone density testing in 2-3 years.
== END | disposition home or self-care (01) ==
LOC: RADBDWWP 15:38
PROVIDERS: ATTEND Obstetrics & Gynecology
DX: M85.89 Other specified disorders of bone density and structure, multiple sites (principal)
CPT/HCPCS: 77080

== ENCOUNTER → 2021-10-18 | Outpatient (CLI) | payer MEDICARE | END | disposition home or self-care (01) | LOC: LABWHC1 09:40 | PROVIDERS: ATTEND Internal Medicine Endocrinology, Diabetes & Metabolism | DX: E03.8 Other specified hypothyroidism (principal) | CPT/HCPCS: 36415; 84443 ==

== ENCOUNTER → 2022-04-07 | Outpatient (CLI) | payer MEDICARE ==
[2022-04-07 14:04] VITALS: BP 133/84; PULSE 76; RESP 17; TEMP 98
--- NOTE | 2022-04-07 14:47 | P.HPOB ---
History of Present Illness H&P Date: 04/07/22 Chief Complaint: The patient is here for her routine gynecologic exam and ma mmogram. This is a 67-year-old with an LMP of 2008. The patient is without gynecologic complaints and denies any postmenopausal bleeding. She has been using Premarin vaginal cream without problems. She denies vulvar itching. Review of Systems The patient has gained 2 pounds over the last year. She denies respiratory, cardiac, or G.I. problems. Past Medical History Past Medical History: GERD/Reflux, Hyperlipidemia, Osteoarthritis (OA), Thyroid Disorder Additional Past Medical History / Comment(s): Hypothyroidism. Osteopenia. 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 [place] Bladder sling procedure, right breast biopsy. Hemorrhoid surgery. Neck surgery. Colonoscopy 2016(2nd). Past Anesthesia/Blood Transfusion Reactions: No Reported Reaction Past Psychological History: No Psychological Hx Reported Smoking Status: Never smoker Past Alcohol Use History: Rare (1 per month) Past Drug Use History: None Reported Additional History: She has been since 1979 and is sexually active. 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 - Past Family History Mother Family Medical History: No Reported History Father Family Medical History: Myocardial Infarction ([place]) Medications and Allergies Home Medications Medication Instructions Recorded Confirmed Type L.acidoph,Paracasei, B.lactis 1 each PO DAILY 01/28/16 04/07/22 History [Probiotic] Digestive Enzymes 1 tab PO DAILY 03/09/18 04/07/22 History Glucosamine Sulfate 500 mg PO DAILY 03/09/18 04/07/22 History Levothyroxine Sodium [Synthroid] 100 mcg PO QAM 03/09/18 04/07/22 History Magnesium Aspartate 400 mg PO DAILY 03/09/18 04/07/22 History Vitamin C Gummies 1 tab PO DAILY 03/09/18 04/07/22 History Vitamin D3/Vitamin K2 1 tab PO DAILY 03/09/18 04/07/22 History Famotidine [Pepcid] 0 mg PO DAILY PRN 02/20/20 04/07/22 History RABEprazole SODIUM [Aciphex] 20 mg PO DAILY 02/20/20 04/07/22 History Estrogens, Conjugated Cream 1 applic VAGINAL WEEKLY 04/07/22 04/07/22 History [Premarin Vaginal Cream] Garlic 50 mg PO BID 04/07/22 04/07/22 History Allergies Allergy/AdvReac Type Severity Reaction Status Date / Time No Known Allergies Allergy Verified 04/07/22 13:58 Exam Vital Signs Temp Pulse Resp BP Pulse Ox 04/07/22 14:02 98.0 F 76 17 133/84 98 Intake and Output 04/06/22 04/07/22 04/07/22 22:59 06:59 14:59 Other: Weight 86.183 kg Height 5 feet 10 inches, weight 190 pounds, BMI 27.3. This is a well-developed well-nourished white female who is alert and oriented times 3 in no acute distress. HEENT: Within normal limits. NECK: Supple without mass or thyromegaly. CHEST AND LUNGS: Clear to auscultation. HEART: Regular rate and rhythm. BREASTS: Are without mass or discharge. AXILLARY EXAM: Negative for adenopathy. BACK: Negative for CVA tenderness. ABDOMEN: Soft, nontender, without palpable masses. PELVIC EXAM: External genitalia has pallor on the inner aspect of the labia majora without excoriation or erythema. The less pigmented areas of the inner vulva are well demarcated. She also has nonpigmented areas on the inner thighs and this has been considered probable vitiligo. There is also mild to moderate atrophy noted. Cervix and vagina appear normal with mild atrophy. There is no unusual discharge. There is no evidence of prolapse. The uterus is midposition, nongravid size and nontender. There are no palpable adnexal masses or tenderness. RECTAL EXAM: Rectovaginal exam is negative for mass or tenderness and is negative for occult blood. EXTREMITIES: Nontender. IMPRESSION: 1. 67-year-old menopausal female with probable vitiligo involving the vulva and inner thighs which is stable from her previous examination. Differential diagnosis will also include lichen sclerosis of the vulva. Since she does not have any problems with the vulvar pruritus, I think this makes the diagnosis of lichen sclerosus less likely. 2. History of any postmenopausal right ovarian cyst measuring 1.7 cm from her last pelvic ultrasound done on 04/11/2021. This has been followed conservatively since 2019. 3. The patient is doing well with Premarin vaginal cream used for vaginal dryness and recurrent UTIs. She has not been having recent UTIs while on this. PLAN: 1. Pap smears have been discontinued. 2. Self breast awareness was discussed with the patient. We have also discussed symptoms associated with inflammatory breast cancer. 3. Screening mammogram will be done today. 4. Pelvic ultrasound as recommended and the order slip was given to the patient for this. If the ovarian cyst seems to be getting smaller or is no longer ther e, we will consider discontinuing yearly pelvic ultrasounds. 5. Continue Premarin vaginal cream as directed. The electronic prescription will be sent to [facility] pharmacy in [place]. 6. She has received a [employer] Covid vaccination and has never had any boosters. She has had Covid twice. She understands Covid booster shots are unavailable and she will consider this. 7. Colorectal cancer screening will be discussed with her PCP. She states she leaves she has been doing non-colonoscopy colorectal cancer screening through her PCP. 8. She was advised to return in one year for her annual well woman exam and as needed.
--- NOTE | 2022-04-08 08:18 | MM ---
Reason for Exam: Screening (asymptomatic). Last mammogram was performed 1 year(s) and 1 month(s) ago. Patient History: Menarche at age 14. First Full-Term at age 27. Postmenopausal. Patient has history of breast feeding. Progesterone for 3 years, 6 months. 03/14/2012, Benign Core Biopsy on the right side. Risk Values: Joan 5 year model risk: 2.1%. NCI Lifetime model risk: 6.3%. Prior Study Comparison: 01/03/2019 Bilateral Screening Mammogram, [facility]. 02/20/2020 Bilateral Screening Mammogram, [facility]. 03/18/2021 Bilateral Screening Mammogram, [facility]. Tissue Density: The breast tissue is heterogeneously dense. This may lower the sensitivity of mammography. Findings: Analyzed By CAD. There is no suspicious group of microcalcifications or new suspicious mass in either breast. Overall Assessment: Benign, BI-RAD 2 Management: Screening Mammogram of both breasts in 1 year. A clinical breast exam by your physician is recommended on an annual basis and results should be correlated with mammographic findings. Electronically signed and approved by: Eladio Jessica M.D. Radiologis
== END ==
LOC: WWCWWP 13:50
PROVIDERS: ATTEND Obstetrics & Gynecology
DX: Z01.419 Encounter for gynecological examination (general) (routine) without abnormal findings (principal); Z12.31 Encounter for screening mammogram for malignant neoplasm of breast; Z78.0 Asymptomatic menopausal state; N83.201 Unspecified ovarian cyst, right side; Z87.440 Personal history of urinary (tract) infections
CPT/HCPCS: 77063; 77067

== ENCOUNTER → 2022-04-14 | Outpatient (CLI) | payer MEDICARE | END | disposition home or self-care (01) | LOC: LABWHC1 13:48 | PROVIDERS: ATTEND Internal Medicine Endocrinology, Diabetes & Metabolism | DX: E03.8 Other specified hypothyroidism (principal) | CPT/HCPCS: 36415; 84443 ==

== ENCOUNTER → 2022-04-14 | Outpatient (CLI) | payer MEDICARE ==
--- NOTE | 2022-04-14 14:28 | US ---
EXAMINATION TYPE: US pelvic complete DATE OF EXAM: 04/14/2022 COMPARISON: 04/21/2021. CLINICAL HISTORY: N83.0 FOLLICULAR CYST OF RIGHT OVARY. Follow up right ovarian cyst TECHNIQUE: . Transabdominal sonographic images of the pelvis were acquired. Date of LMP: 15+ years ago EXAM MEASUREMENTS: Uterus: 7.7 x 3.5 x 4.4 cm Endometrial Stripe: 0.6 cm Right Ovary: 3.1 x 1.9 x 2.8 cm Left Ovary: 1.6 x 0.9 x 1.5 cm 1. Uterus: anteverted 2. Endometrium: wnl 3. Right Ovary: 2.1 x 1.5 x 1.7cm cystic area. There has been a 1.6 cm right ovarian cyst present pr eviously. 4. Left Ovary: wnl 5. Bilateral Adnexa: wnl 6. Posterior cul-de-sac: wnl Bladder is sonolucent. IMPRESSION: 1. Right ovarian cyst. Follow-up exam in 6 weeks can be performed. 2. Pelvic ultrasound is otherwise unremarkable.
--- NOTE | 2022-04-15 13:23 | P.PN ---
Progress Note - Text Progress Note Date: 04/15/22 OUTPATIENT FOLLOW-UP NOTE TEST(S)/RESULTS: Test results from 04/07/2022 include a screening mammogram which was benign. Pelvic ultrasound done on 04/14/2022 shows a right ovarian cyst measuring 2.1 x 1.5 x 1.7 cm. METHOD OF NOTIFICATION: The patient was notified by phone. PATIENT COMMENTS: DIAGNOSIS: Benign right ovarian cyst in the menopausal female which has not significantly changed since initially discovered in 2019.Benign mammogram. DISCUSSION: She was instructed to call if she is having unusual abdominal or pelvic pain or discomfort. PLAN: Repeat pelvic ultrasound in 1 year and as needed. She was advised to return in one year for her annual well woman exam.
== END | disposition home or self-care (01) ==
LOC: RADUSWWP 13:45
PROVIDERS: ATTEND Obstetrics & Gynecology
DX: N83.01 Follicular cyst of right ovary (principal)
CPT/HCPCS: 76856

== ENCOUNTER → 2022-10-15 | Outpatient (CLI) | payer MEDICARE | END | disposition home or self-care (01) | LOC: LABWHC1 11:16 | PROVIDERS: ATTEND Internal Medicine Endocrinology, Diabetes & Metabolism | DX: E03.8 Other specified hypothyroidism (principal) | CPT/HCPCS: 36415; 84443 ==

== ENCOUNTER 2022-11-13 06:53 | Day surgery (SDC) | payer MEDICARE ==
[2022-11-11 16:17] VITALS: BMI 26.5
[~2022-11-13 06:53] MED LIST changes: +DEXAMETHASONE SOD PHOSPHATE 4 MG/ML 1 ML VIAL IV ONE; +LIDOCAINE 1% (10MG/ML) FOR IV START INTRADERMA PRN; +MIDAZOLAM 2 MG/2 ML VIAL IV PRN; -MORPHINE SULFATE 4 MG/ML SYRINGE IV PRN; +ONDANSETRON 4 MG/2 ML VIAL IVP ONE; +Pre Op ABX Message 1 EACH MISC MISCELLANE ONE; -ceFAZolin IN SWFI 2 GM/20 ML SYRINGE IVP ONE
[2022-11-13] MEDS ORDERED: HYDROmorphone 0.5 MG/0.5 ML SYRINGE IVP PRN (07:00)
[2022-11-13] MEDS ORDERED: MIDAZOLAM 2 MG/2 ML VIAL IVP ONE (08:22)
[2022-11-13] MEDS ORDERED: LIDOCAINE 2% INJ 20 MG/ML (2 ML VIAL) ONE (09:04)
[2022-11-13] MEDS ORDERED: SUCCINYLCHOLINE CHLORIDE 200 MG/10 ML VIAL IV ONE (09:04)
[2022-11-13] MEDS ORDERED: ROPIVACAINE 5 MG/ML 30 ML VIAL ONE (09:04)
[2022-11-13] MEDS ORDERED: ePHEDrine 50 MG/ML 1 ML VIAL ONE (09:04)
[2022-11-13] MEDS ORDERED: MIDAZOLAM 2 MG/2 ML VIAL ONE (09:04)
[2022-11-13] MEDS ORDERED: fentaNYL (PF) 50 MCG/ML 2 ML AMP ONE (09:04)
[2022-11-13] MEDS ORDERED: PROPOFOL 10 MG/ML 20 ML VIAL IV ONE (09:04)
[2022-11-13] MEDS ORDERED: ceFAZolin 1,000 MG in SODIUM CHLORIDE 0.9% 1,000 ML IRRIGATION ONE (09:06)
[2022-11-13] MEDS ORDERED: SODIUM CHLORIDE 0.9% 100 ML with ceFAZolin 2,000 MG IV ONE ×2 (09:06)
[2022-11-13] MEDS ORDERED: LACTATED RINGERS 1,000 ML IV ONE ×2 (10:01)
--- NOTE | 2022-11-13 10:05 | P.ANPRN ---
Procedure Note - Anesthesia - Nerve Block Performed Right Adductor Canal Single Date of Procedure: 11/13/22 Procedure Start Time: Procedure Stop Time: Location of Patient: PreOp Indication: Acute Post-Operative Pain, Requested by Surgeon Sedation Type: Sedate with meaningful contact maintained Preparation: Sterile Prep Position: Supine Needle Types: Pajunk Needle Gauge: 21 Ultrasound used to visualize needle placement: Yes Ultrasound used to observe medication spread: Yes Injectate: 0.5% Ropivacaine (see comment for volume) (10) Blood Aspirated: No Pain Paresthesia on Injection Noted: No Resistance on Injection: Normal Image Stored and Saved: Yes Events: Uneventful and Well Tolerated Right Popliteal Single Time Out Performed: Yes Date of Procedure: 11/13/22 Procedure Start Time: Procedure Stop Time: Location of Patient: PreOp Indication: Acute Post-Operative Pain, Requested by Surgeon Sedation Type: Sedate with meaningful contact maintained Preparation: Sterile Prep Position: Supine Needle Types: Pajunk Needle Gauge: 21 Ultrasound used to visualize needle placement: No Ultrasound used to observe medication spread: No Injectate: 0.5% Ropivacaine (see comment for volume) (20) Blood Aspirated: No Pain Paresthesia on Injection Noted: No Resistance on Injection: Normal Image Stored and Saved: Yes Events: Uneventful and Well Tolerated
[2022-11-13 10:58] VITALS: TEMP 97.2
--- NOTE | 2022-11-13 11:03 | P.OP ---
Date of Procedure: 11/13/22 Preoperative Diagnosis: Hallux valgus right foot Postoperative Diagnosis: Same Procedure(s) Performed: Lapidus bunionectomy right foot Implants: Lapiplasty plates and screws Anesthesia: FAVIOLA Surgeon: Robby Barroso Estimated Blood Loss (ml): 2 Pathology: none sent Condition: stable Disposition: PACU Description of Procedure: Prior to the patient being brought to the operating room, anesthesia administered a nerve block on the right lower extremity. Patient brought into the operative room and placed on table supine position. Timeout was taken to confirm correct patient identifiers, correct laterality of surgery, and correct procedure. Once all staff in the room were in agreement with the timeout, the patient was induced and placed under general anesthesia. A well-padded tourniquet was placed on the right ankle and then the right foot was prepped and draped usual manner. The right foot was exsanguinated and the tourniquet inflated to 250 mmHg. Utilizing direct fluoroscopic visualization an incision was made lateral to the first metatarsal phalangeal joint. The blade was advanced deep in a lateral capsulotomy performed. Then the blade was rotated and advanced proximally to release the lateral sesamoid collateral ligament. The great toe was adducted under fluoroscopy to ensure that the sesamoids were freed. Then attention was directed over the dorsal aspect of the foot where an incision was made over the first tarsometatarsal joint and medial to the long extensor tendon. It was deepened down to the subcutaneous tissue careful to identify, avoid, and retract any neurovascular structures and cauterize any bleeding vessels. Dissection was then continued down to the deep tissue. An incision was made to the periosteal capsular structures medial to the long extensor tendon. The periosteum capsular structures were reflected from their osseous attachments over the first tarsometatarsal joint. [place] elevator was used to create a pocket in the soft tissue on the lateral side of the base of the first metatarsal. A guidewire was placed in the base of the first metatarsal 1 cm distal to the joint. This is used to act as a joystick to correct the frontal plane rotation of the first metatarsal. The 3 in 1 device was inserted into the first tarsometatarsal joint. Then a small stab incision was made on the lateral side of the second metatarsal shaft just distal to the initial skin incision. The intermetatarsal angle reduction clamp was placed over the lateral side of the second metatarsal and the other aspect was placed on the medial side of the first metatarsal. Then while correcting the frontal plane rotation the inner metatarsal angle reduction clamp was then advanced to close the angle between the first and second metatarsals. Direct fluoroscopic visualization indicated when enough correction was achieved. This was indicated by closure of the first intermetatarsal angle and realignment of the sesamoids. Once the alignment was completed, a guidewire was placed through the reduction clamp to lock it in place. Pins were then placed through the cut guide to lock it in place. A sagittal saw was then used to resect the bases of the first metatarsal and articular surface of the medial cuneiform. The cut guide was then removed as well as wire and the reduction clamp. The distractor was placed over the guidewires and then the joint distracted so that the cut pieces of bone could be removed. Once that was completed the area was thoroughly irrigated with antibiotic saline. A 2.0 mm drill bit was then used to aggressively fenestrate the conjoining surfaces of the arthrodesis site. The fulcrum was then placed on the lateral side of the base of the first metatarsal. Then with the first metatarsal phalangeal joint dorsiflexed, the reduction clamp was then converted to a compression device and then the arthrodesis site was compressed. Fluoroscopy confirmed that the correction was maintained and that there was good bony contact at the arthrodesis site. Threaded olive wire was then placed across the arthrodesis site to maintain the reduction. The medial plate was positioned across the arthrodesis site. Once it was in proper position, temporary fixation wires were then placed at the most proximal distal holes in the plate. The inner holes closest to the arthrodesis site were drilled and then the compression/locking screws were inserted and tightened until fully seated. The temporary fixation wires were removed and the holes drilled. Locking screws were placed in the most distal proximal holes of the medial plate. The compression device was removed along with the guidewires. The dorsal plate was then positioned and adjusted under fluoroscopy. Once position was appropriate temperate fixation was placed in the most distal proximal holes of the plate. The inner holes closest to the arthrodesis site were drilled and the locking/compression screws were placed through the plate and tightened until the heads were fully seated. The temporary fixation was removed and the most distal proximal holes were drilled and locking screws inserted until fully seated. Final fluoroscopic imaging showed proper placement of all hardware with maintain correction of the intermetatarsal angle as well as maintain compression at of the arthrodesis site. The fulcrum and olive wire were removed. The wound was thoroughly irrigated with antibiotic saline. The correction was assessed under live fluoroscopic exam. It was noted that there was continued lateral deviation of the sesamoid apparatus as well as the great toe. Therefore the decision was made to perform a medial capsulotomy to reinforce repair due to attenuation of the ligaments. A medial incision was made between the neurovascular structures over the first metatarsal phalangeal joint. It was deepened down to the subcutaneous tissue careful to identify, avoid, and retract any neurovascular structures and cauterize any bleeding vessels. The capsule was incised from distal to proximal and then a second incision was made in the shape of a T along the line of the metatarsal phalangeal joint. The great toe was held in corrected alignment and the amount of excessive medial joint capsule was as was determined and resected dorsal to plantar. A sagittal saw was then used to resect the medial eminence and all roughened edges smoothed with a rasp. The wound is irrigated with anatomic saline. With the great toe held in a correct position 0 Vicryl was used to repair the capsule. Once repaired fluoroscopy was used to check the alignment. The sesamoids were anatomically aligned the great toe was rectus. The rest the capsules repaired with 0 Vicryl. Subcu closure was done with 4-0 Monocryl. And skin closure done with 3-0 nylon. Deep closure on the dorsal incision was done with 2-0 Vicryl. Subcu closure was done with 4-0 Monocryl. And skin closure done with3-0 Stratafix in a running subcuticular manner. The small incisions made for the clamp and the lateral release were closed with 4-0 Monocryl.Dermal glue was placed over the dorsal incision. Once dried Steri-Strips are placed over all the incisions. The incision was covered with an Arthrex jumpstart dressing and then a dry sterile dressings applied to the foot. The tourniquet was then released and capillary refill return to all digits on the left foot. The patient was then placed in a well-padded, well molded posterior mold/sugar tong splint. The ankle and foot were held in neutral position until the splint was dried. Then anesthesia was reversed and the patient was taken recovery with vital signs stable.
[2022-11-13 11:47] VITALS: RESP 16
[2022-11-13 12:31] VITALS: BP 162/85; PULSE 85
== END 2022-11-13 12:55 | disposition home or self-care (01) ==
LOC: OR 06:53
PROVIDERS: ATTEND Podiatrist
DX: M20.11 Hallux valgus (acquired), right foot (principal); G89.18 Other acute postprocedural pain; I10 Essential (primary) hypertension; E03.9 Hypothyroidism, unspecified; K21.9 Gastro-esophageal reflux disease without esophagitis; Z82.49 Family history of ischemic heart disease and other diseases of the circulatory system; Z86.59 Personal history of other mental and behavioral disorders; Z79.899 Other long term (current) drug therapy
CPT/HCPCS: 64447; 64445; 28297; C1713; J2250; J0330; J1100; J2405; J0690; J3010; J2795; J2704; J2001

== ENCOUNTER → 2023-04-13 | Outpatient (CLI) | payer MEDICARE ==
[2023-04-13 13:09] VITALS: BP 144/82; PULSE 73; RESP 16; TEMP 98.3
--- NOTE | 2023-04-13 13:39 | P.HPOB ---
History of Present Illness H&P Date: 04/13/23 Chief Complaint: The patient is here for her routine gynecologic exam and ma mmogram. This is a 68-year-old with an LMP of 2008. The patient is without gynecologic complaints. She previously was using Premarin vaginal cream because of recurrent UTIs. She states she is now very infrequently sexually active and has not been having the UTIs even though she discontinued the estrogen cream 6 months ago. She states she no longer needs the estrogen cream. Review of Systems She has lost about 5 pounds over the past year and attributes this to eating more healthy. She denies respiratory, cardiac, or GI problems. Past Medical History Past Medical History: GERD/Reflux, Hyperlipidemia, Hypertension, Osteoarthritis (OA), Thyroid Disorder Additional Past Medical History / Comment(s): Hypothyroidism. Osteopenia. 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 History of Any Multi-Drug Resistant Organisms: None Reported Past Surgical History: Back Surgery, Bladder Surgery, Breast Surgery, Orthopedic Surgery, Tonsillectomy Additional Past Surgical History / Comment(s): Benign tumor removed from spinal cord, [place] Bladder sling procedure, right breast biopsy, hemorrhoid surgery, neck surgery, colonoscopy X2. Bilateral foot surgery. Past Anesthesia/Blood Transfusion Reactions: No Reported Reaction Past Psychological History: No Psychological Hx Reported Smoking Status: Never smoker Past Alcohol Use History: Rare (2 per month.) Past Drug Use History: None Reported Additional History: She has been since 1979 and is infrequently sexually active. 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 - Past Family History Mother Family Medical History: No Reported History Father Family Medical History: Myocardial Infarction ([place]) Medications and Allergies Home Medications Medication Instructions Recorded Confirmed Type L.acidoph,Paracasei, B.lactis 1 each PO DAILY 01/28/16 04/13/23 History [Probiotic] Digestive Enzymes 1 tab PO DAILY 03/09/18 04/13/23 History Glucosamine Sulfate 500 mg PO DAILY 03/09/18 04/13/23 History Levothyroxine Sodium [Synthroid] 100 mcg PO QAM 03/09/18 04/13/23 History Magnesium Aspartate 400 mg PO DAILY 03/09/18 04/13/23 History Vitamin C Gummies 1 tab PO DAILY 03/09/18 04/13/23 History Vitamin D3/Vitamin K2 1 tab PO DAILY 03/09/18 04/13/23 History RABEprazole SODIUM [Aciphex] 20 mg PO QAM 02/20/20 04/13/23 History Garlic 50 mg PO BID 04/07/22 04/13/23 History Lutein (Unknown Dose) 1 tab PO DAILY 11/11/22 04/13/23 History lisinopriL [Zestril] 5 mg PO PC-LUNCH 11/11/22 04/13/23 History HYDROcodone/APAP 7.5-325MG [[place] 1 tab PO Q6HR PRN #28 tab 11/13/22 04/13/23 Rx 7.5-325] Allergies Allergy/AdvReac Type Severity Reaction Status Date / Time No Known Allergies Allergy Verified 04/13/23 12:47 Exam Vital Signs Temp Pulse Resp BP Pulse Ox 04/13/23 12:49 98.3 F 73 16 144/82 100 Intake and Output 04/12/23 04/13/23 04/13/23 22:59 06:59 14:59 Other: Weight 83.915 kg Height 5 feet 10 inches, weight 185 pounds, BMI 26.5. This is a well-developed well-nourished white female who is alert and oriented times 3 in no acute distress. HEENT: Within normal limits. NECK: Supple without mass or thyromegaly. CHEST AND LUNGS: Clear to auscultation. HEART: Regular rate and rhythm. BREASTS: Are without mass or discharge. AXILLARY EXAM: Negative for adenopathy. BACK: Negative for CVA tenderness. ABDOMEN: Soft, nontender, without palpable masses. PELVIC EXAM: External genitalia has areas of pallor on the inner aspect of the labia majora without excoriation or erythema. These less pigmented areas are well demarcated and are consistent with the vitiligo weight which she has had for many years. She states this has been unchanged and does not bother her. Cervix and vagina appear normal with mild atrophy. There is no unusual discharge. There is no evidence of prolapse. The uterus is midposition, nongra vid size and nontender. There are no palpable adnexal masses or tenderness. RECTAL EXAM: Rectovaginal exam is negative for mass or tenderness and is negative for occult blood. EXTREMITIES: Nontender. IMPRESSION: 1. 68-year-old menopausal female with stable vitiligo involving the vulva and inner thighs. Otherwise unremarkable gynecologic exam. 2. History of right ovarian cyst measuring 2.1 cm by her last ultrasound on 04/14/2022. This has been followed conservatively. 3. History of osteopenia. PLAN: 1. Pap smears have been discontinued. 2. Self breast awareness was discussed with the patient. We have also discussed symptoms associated with inflammatory breast cancer. 3. Screening mammogram will be done today. 4. Osteoporosis prevention was discussed. I have stressed the importance of adequate calcium, vitamin D and regular exercise. Recommended amounts of calcium and vitamin D were also discussed. Her last bone density test was about one half years ago and we will plan on repeating the bone density test in 1 year. 5. Pelvic ultrasound to follow the right ovarian cyst. The order slip was given to the patient for this. 6. The patient states she discontinued the Premarin vaginal cream about 6 months ago and has not been having any problems and would like to go without this. She will call if she wants to resume the Premarin vaginal cream. 7. She was advised to return in one year for her annual well woman exam.
--- NOTE | 2023-04-14 23:28 | MM ---
Reason for Exam: Screening (asymptomatic). Last screening mammogram was performed 12 month(s) ago. Patient History: Menarche at age 14. First Full-Term at age 27. Postmenopausal. Patient has history of breast feeding. Progesterone for 3 years, 6 months. 03/14/2012, Benign Core Biopsy on the right side. Risk Values: Joan 5 year model risk: 2.1%. NCI Lifetime model risk: 6.0%. Prior Study Comparison: 02/20/2020 Bilateral Screening Mammogram, [facility]. 03/18/2021 Bilateral Screening Mammogram, [facility]. 04/07/2022 Bilateral MG 3D screening mammo w/cad, [facility]. Tissue Density: There are scattered fibroglandular densities. Findings: Analyzed By CAD. Microclip right breast from prior biopsy. There is no suspicious group of microcalcifications or new suspicious mass in either breast. Overall Assessment: Negative, BI-RAD 1 Management: Screening Mammogram of both breasts in 1 year. . Patient should continue monthly self-breast exams. A clinical breast exam by your physician is recommended on an annual basis. This exam should not preclude additional follow-up of suspicious palpable abnormalities. Note on Joan scores and lifetime risk: 1. A Joan score greater than 3% is considered moderate risk. If this is the case, consider specialist referral to assess eligibility for a risk reducing agent. 2. If overall lifetime risk for the development of breast cancer is 20% or higher, the patient may qualify for future screening with alternating mammogram and breast MRI. Electronically signed and approved by: Ai Yost M.D. Radiologist
== END ==
LOC: WWCWWP 12:34
PROVIDERS: ATTEND Obstetrics & Gynecology
DX: Z12.31 Encounter for screening mammogram for malignant neoplasm of breast (principal); M85.80 Other specified disorders of bone density and structure, unspecified site; N83.201 Unspecified ovarian cyst, right side; N90.89 Other specified noninflammatory disorders of vulva and perineum; K21.9 Gastro-esophageal reflux disease without esophagitis; I10 Essential (primary) hypertension; M19.90 Unspecified osteoarthritis, unspecified site; E03.9 Hypothyroidism, unspecified; E78.5 Hyperlipidemia, unspecified; Z78.0 Asymptomatic menopausal state; Z79.890 Hormone replacement therapy; Z86.018 Personal history of other benign neoplasm; Z79.899 Other long term (current) drug therapy
CPT/HCPCS: 77063; 77067

== ENCOUNTER → 2023-05-03 | Outpatient (CLI) | payer MEDICARE | END | disposition home or self-care (01) | LOC: LABWHC1 11:44 | PROVIDERS: ATTEND Internal Medicine Endocrinology, Diabetes & Metabolism | DX: E03.8 Other specified hypothyroidism (principal) | CPT/HCPCS: 36415; 84443 ==

== ENCOUNTER → 2023-05-05 | Outpatient (CLI) | payer MEDICARE ==
--- NOTE | 2023-05-05 15:06 | US ---
EXAMINATION TYPE: US pelvic complete DATE OF EXAM: 05/05/2023 COMPARISON: 04/13/22 CLINICAL INDICATION: Female, 68 years old with history of N83.0 OTHER OVARIAN CYST, RIGHT SIDE; Rt o varian cyst f/u TECHNIQUE: Transabdominal (TA). Transabdominal sonographic images of the pelvis were acquired. Date of LMP: 15+ yrs ago EXAM MEASUREMENTS: Uterus: 8.4x3.7x5.1 cm Endometrial Stripe: 0.7 cm Right Ovary: 3.1x2.5x1.8 cm Left Ovary: 2.0x1.8x1.0 cm 1. Uterus: Anteverted wnl 2. Endometrium: fluid noted within 3. Right Ovary: cystic area again seen: 1.9x1.9x1.8cm 4. Left Ovary: wnl 5. Bilateral Adnexa: Obscured by overlying bowel gas 6. Posterior cul-de-sac: wnl IMPRESSION: 1. Unchanged left ovarian cyst. Continue annual ultrasound follow-up. 2. No acute findings otherwise seen.
== END | disposition home or self-care (01) ==
LOC: RADUSWWP 14:34
PROVIDERS: ATTEND Obstetrics & Gynecology
DX: N83.291 Other ovarian cyst, right side (principal); N83.292 Other ovarian cyst, left side
CPT/HCPCS: 76856

== ENCOUNTER → 2023-11-10 | Outpatient (CLI) | payer MEDICARE | END | disposition home or self-care (01) | LOC: LABWHC1 11:57 | PROVIDERS: ATTEND Internal Medicine Endocrinology, Diabetes & Metabolism | DX: E03.8 Other specified hypothyroidism (principal) | CPT/HCPCS: 36415; 84443 ==

== ENCOUNTER → 2023-11-10 | Outpatient (CLI) | payer MEDICARE ==
--- NOTE | 2023-11-10 13:42 | US ---
EXAMINATION TYPE: US pelvis complete transvag DATE OF EXAM: 11/10/2023 COMPARISON: 05/05/23 CLINICAL INDICATION: Female, 68 years old with history of N83.00 OVARIAN CYST; TECHNIQUE: Transvaginal (TV) and Transabdominal (TA) . Transabdominal sonographic images of the pel vis were acquired. Transvaginal sonographic images were medically necessary to better assess the fol lowing anatomy: Endometrium EXAM MEASUREMENTS: Uterus: 7.3 x 3.1 x 4.3 cm Endometrial Stripe: Combined A&P = 0.44 cm Right Ovary: 3.0 x 2.2 x 2.8 cm 1. Uterus: wnl 2. Endometrium: Fluid noted 3. Right Ovary: Cystic structure 2.4 x 2.0 x 2.2 cm 4. Left Ovary: Not visualized today due to overlying bowel gas 5. Bilateral Adnexa: wnl 6. Posterior cul-de-sac: wnl IMPRESSION: 1. No evidence for acute process. 2. Right cyst measuring up to 2.6 cm. No suspicious features. 3. Endometrium within normal limits for thickness. Trace amount of fluid in the endometrium. Correla te for cervical stenosis.
== END | disposition home or self-care (01) ==
LOC: RADUSWWP 11:09
PROVIDERS: ATTEND Obstetrics & Gynecology
DX: N83.01 Follicular cyst of right ovary (principal)
CPT/HCPCS: 76830; 76856

== ENCOUNTER → 2023-12-01 | Outpatient (CLI) | payer MEDICARE ==
[2023-12-01 09:04] LABS: INR 0.9 (<1.2); Prothrombin Time 10.4 sec (10.0-12.5)
[2023-12-01 15:53] LABS: BUN/Creat Ratio 16.22 Ratio (12.00-20.00); Blood Urea Nitrogen 14.6 mg/dL (9.0-27.0); Carbon Dioxide 24.4 mmol/L (21.6-31.8); Chloride 104 mmol/L (96-109); Glucose 106 mg/dL (70-110); Potassium 4.3 mmol/L (3.5-5.5); Sodium 141 mmol/L (135-145)
[2023-12-01 15:54] LABS: ALT 14 U/L (8-44); AST 21 U/L (13-35); Albumin 4.6 g/dL (3.8-4.9); Albumin/Globulin Ratio 2.09 Ratio (1.60-3.17); Alkaline Phosphatase 89 U/L (41-126); Calcium 10.2 mg/dL (8.7-10.3); Globulin 2.2 g/dL (1.6-3.3); Total Bilirubin 0.7 mg/dL (0.3-1.2); Total Protein 6.8 g/dL (6.2-8.2)
[2023-12-01 16:18] LABS: HCT 45.1 % (37.2-46.3); HGB 14.2 g/dL (12.0-15.0); MCH 30.1 pg (27.0-32.0); MCHC 31.5 g/dL (32.0-37.0); MCV 95.6 FL (80.0-97.0); Mean Platelet Volume 11.7 FL (9.5-12.2); NRBC Per 100 WBC 0 X 10*3/uL (0.00-0.01); Platelet Count 235 X 10*3/uL (140-440); RBC 4.72 X 10*6/uL (4.10-5.20); RDW 12.7 % (11.5-14.5); WBC 4.84 X 10*3/uL (4.50-10.00)
== END | disposition home or self-care (01) ==
LOC: LABPAT 08:29
PROVIDERS: ATTEND Orthopaedic Surgery
DX: Z01.818 Encounter for other preprocedural examination (principal); R00.1 Bradycardia, unspecified; Z22.322 Carrier or suspected carrier of Methicillin resistant Staphylococcus aureus
CPT/HCPCS: 80053; 85027; 85610; 85730; 87070; 93005

== ENCOUNTER 2023-12-20 07:25 | Day surgery (SDC) | payer MEDICARE ==
[~2023-12-20 07:25] MED LIST changes: -DEXAMETHASONE SOD PHOSPHATE 4 MG/ML 1 ML VIAL IV ONE; -LACTATED RINGERS 1,000 ML IV SCH; -LIDOCAINE 1% (10MG/ML) FOR IV START INTRADERMA PRN; -MIDAZOLAM 2 MG/2 ML VIAL IV PRN; -ONDANSETRON 4 MG/2 ML VIAL IVP ONE; -Pre Op ABX Message 1 EACH MISC MISCELLANE ONE; +TRANEXAMIC 1,000 MG/100ML-NACL 1,000 MG in SALINE 1 100ML.BAG IVPB PRN
[2023-12-20] MEDS ORDERED: HYDROmorphone 0.5 MG/0.5 ML SYRINGE IVP PRN ×4 (07:40→11:00)
[2023-12-20] MEDS ORDERED: LIDOCAINE 1% (10MG/ML) FOR IV START INTRADERMA PRN (07:40)
[2023-12-20] MEDS: LACTATED RINGERS 1,000 ML IV SCH (08:01)
[2023-12-20] MEDS: ACETAMINOPHEN TAB 500 MG TAB PO PRN (08:05)
[2023-12-20] MEDS: GABAPENTIN 300 MG CAP PO PRN (08:06)
[2023-12-20] MEDS: MELOXICAM 7.5 MG TAB PO PRN (08:06)
[2023-12-20] MEDS: ONDANSETRON 4 MG/2 ML VIAL IVP ONE (08:08)
[2023-12-20] MEDS: DEXAMETHASONE SOD PHOSPHATE 4 MG/ML 1 ML VIAL IVP STA (08:12)
[2023-12-20] MEDS: fentaNYL (PF) 50 MCG/ML 2 ML AMP IVP ONE (08:21)
[2023-12-20] MEDS: MIDAZOLAM 2 MG/2 ML VIAL IVP ONE (08:21)
--- NOTE | 2023-12-20 08:51 | P.ANPRN ---
Procedure Note - Anesthesia - Nerve Block Performed Left Adductor Canal Infusion Time Out Performed: Yes Date of Procedure: 12/20/23 Procedure Start Time: : Procedure Stop Time: : Location of Patient: PreOp Indication: Acute Post-Operative Pain, Requested by Surgeon Sedation Type: Sedate with meaningful contact maintained Preparation: Sterile Prep, Sterile Dressing Position: Supine Catheter: Indwelling Needle Types: Pajunk Needle Gauge: 18 Ultrasound used to visualize needle placement: Yes Ultrasound used to observe medication spread: Yes Injectate: 0.5% Ropivacaine (see comment for volume) (20 ml + 10 ml NS) Blood Aspirated: No Pain Paresthesia on Injection Noted: No Resistance on Injection: Normal Image Stored and Saved: Yes Events: Uneventful and Well Tolerated
--- NOTE | 2023-12-20 08:52 | P.ANPRN ---
Procedure Note - Anesthesia - Nerve Block Performed Left iPack Single Time Out Performed: Yes Date of Procedure: 12/20/23 Procedure Start Time: 08:30 Procedure Stop Time: 08:36 Location of Patient: PreOp Indication: Acute Post-Operative Pain, Requested by Surgeon Sedation Type: Sedate with meaningful contact maintained Preparation: Sterile Prep Position: Right Lateral Needle Types: Pajunk Needle Gauge: 21 Ultrasound used to visualize needle placement: Yes Ultrasound used to observe medication spread: Yes Injectate: 0.5% Ropivacaine (see comment for volume) (20 ml + 10 ml NS + 4 mg Dexamethasone) Blood Aspirated: No Pain Paresthesia on Injection Noted: No Resistance on Injection: Normal Image Stored and Saved: Yes Events: Uneventful and Well Tolerated
[2023-12-20] MEDS ORDERED: fentaNYL (PF) 50 MCG/ML 2 ML AMP ONE (09:24)
[2023-12-20] MEDS ORDERED: ePHEDrine 50 MG/ML 1 ML VIAL ONE (09:24)
[2023-12-20] MEDS ORDERED: TRANEXAMIC 1,000 MG/100ML-NACL PREMIX BAG ONE (09:24)
[2023-12-20] MEDS ORDERED: MIDAZOLAM 2 MG/2 ML VIAL ONE (09:24)
[2023-12-20] MEDS ORDERED: SODIUM CHLORIDE 0.9% (PF) 10 ML VIAL ONE (09:24)
[2023-12-20] MEDS ORDERED: PROPOFOL 10 MG/ML 20 ML VIAL IV ONE (09:24)
[2023-12-20] MEDS ORDERED: ROPIVACAINE 5 MG/ML 30 ML VIAL ONE (09:24)
[2023-12-20] MEDS ORDERED: DEXAMETHASONE SOD PHOSPHATE 4 MG/ML 1 ML VIAL ONE (09:24)
[2023-12-20] MEDS: ceFAZolin 1,000 MG in SODIUM CHLORIDE 0.9% 1,000 ML IRRIGATION ONE (09:28)
[2023-12-20] MEDS: LACTATED RINGERS 1,000 ML IV ONE (09:59)
--- NOTE | 2023-12-20 10:32 | P.OP ---
Date of Procedure: 12/20/23 Preoperative Diagnosis: Severe osteoarthritis left knee Postoperative Diagnosis: Severe osteoarthritis left knee Procedure(s) Performed: Left total knee arthroplasty Implants: [employer] Journey II CR Oxinium cruciate retaining femoral component size 5, left [employer] Journey nonporous tibial baseplate size 4, left [employer] Journey II, XLPE Deep Dished articular insert, size 11 mm, Size 3-4, left [employer] Journey Shanae II resurfacing patellar component, oval, 29 mm All components were cemented using Palacos R bone cement The articulation is Oxinium on polyethylene Anesthesia: spinal Surgeon: Issa Barrientos Box Spring Frame Builder #1: Jaja Concepcion Estimated Blood Loss (ml): 25 Pathology: none sent Condition: stable Disposition: PACU Indications for Procedure: The patient's knee is end-stage, and conservative management has failed. The operation of knee replacement has been discussed at length in the office, as well as potential risks and complications. These are inclusive of, but not limited to: Infection, bleeding, scarring, discomfort, stiffness, blood vessel and nerve damage, need for further surgery, failure to relieve symptoms, persistence, recurrence, or worsening of problems, loosening, dislocation, wear, blood clot, pulmonary embolism, , gait dysfunction, stiffness, and other risks as discussed in the office. Patient elects to proceed and the consent form has been signed. Operative Findings: The operative findings are consistent with severe osteoarthritis of the left knee Description of Procedure: The patient was seen in the preoperative area, the consent was reviewed and the operative site was marked with a skin marker. The patient verified the procedure and the operative site. An adductor canal pain catheter and an iPACK block were placed by anesthesia in the preoperative area. The patient was then brought to the operating room and positioned on the operating room table in the supine position. Preoperative antibiotics and a gram of tranexamic acid were given intravenously. A spinal anesthetic was administered by the anesthesia department. Care was taken to make sure that all pressure points were adequately padded. A tourniquet was placed on the upper thigh and the lower extremity was prepped with ChloraPrep and draped in usual sterile fashion. A universal time-out was then performed which confirmed the patient's name, surgical site, ALLERGIES, and consent. The lower extremity was then exsanguinated and tourniquet was inflated to 250 mmHg. A standard anterior midline approach to the knee was performed. The skin and subcutaneous tissue were sharply dissected down to the patellar tendon. A medial parapatellar arthrotomy was then performed. The knee was then extended, the patellar was everted, and the knee was flexed. The infra-patellar fat pad was removed in order to enhance exposure. The anterior horns of both menisci were excised, and a release was performed to the posterior medial aspect of the knee. On gross visual inspection, there was complete loss of articular cartilage in the medial and patellofemoral joint spaces. There was also significant cartilage damage in the lateral compartment. There were multiple periarticular osteophytes globally about the knee which were then removed with a Ronguer. The femoral canal was then opened with the 9.5 mm intramedullary drill. The 8 mm intramedullary javy was then inserted into the femoral canal with the distal femoral cutting guide set for 5 of valgus. The distal femoral cutting block was then pinned in place. The intramedullary javy was then removed, and the distal femur was then cut. The cutting block was then removed and the cut was checked for symmetry. The resected bone was then measured to confirm the appropriate distal femoral resection. Next, the sizing guide was then placed and set for 3 external rotation based off of the epicondylar axis and Bradley's line. Pins were then placed and the drill holes, and the femur was sized with the sizing stylus. The pins were then removed, and the sizing guide was then removed. The spikes of the appropriate size femoral block was then placed into the predrilled holes, and malleted into place. Two 45 mm pins were then placed into the fixation holes on the cutting block. An mahin wing was then used to ensure there would be no notching with the anterior cut. The anterior condyles were cut without notching. The anterior chord cut was then performed, followed by the posterior cut, posterior chamfer cut, and the anterior chamfer cut. The collateral ligaments were protected during the entire process. The cutting block was then removed. Any remaining bone and osteophytes were removed from the femur with a Ronguer. Attention was then directed to the tibia. The remaining ACL was removed with a Ronguer, and the tibia was then gently subluxed forward with a large bent knee retractor. Any remaining menisci were excised. The posterior lateral corner was cauterized in order to coagulate the lateral geniculate artery. The extra medullary tibial cutting guide was then placed, set for the appropriate rotation, slope, and depth of resection. The proximal tibia cutting guide was then pinned in place. Proximal tibia was then cut and sized. A curved osteotome was then used to remove any posterior osteophytes from the distal femur. The femoral trial was placed. A narrow saw blade was then used to remove the anterior intracondylar femoral bone. The CR notch trial was then placed. The tibial trial was placed with the appropriate-sized insert. The knee was able to fully extend and flex to 130 and was stable throughout all range of motion. The knee was then extended and the patella was everted. Patella was then measured, and then using an osteotomy guide, the patella was cut at the appropriate level. The patellar component was sized. The patellar drill guide was placed and the patella was drilled. The patella trial was then placed. The knee was then taken through range of motion with the patella trial and the patella tracked normally using the no thumbs technique. The patella trial was then removed. The knee was then flexed and lug holes were drilled through the femoral trial and the femoral trial was then removed. The tibial was then re- exposed, and the tibial broach guide was then pinned in place after it was set for the appropriate rotation to allow for the most coverage without overhang. The tibia was then reamed and broached. The femoral canal was plugged with autologous bone. The cut surfaces of bone were then irrigated with pulsatile lavage. The knee was also irrigated with Irrisept solution. The components were then opened, the cement was mixed. Cement was placed on the backside of the femoral, tibial, and patellar components. Cement was then applied to the tibial surface and pressurized into the surface using finger pressurization technique. The tibial component was then applied and excess cement was removed after it was impacted securely noted to be flush with the cut surface. In similar fashion, the cement was applied to the cut femoral surface, pressur ized and using finger pressurization the component was impacted in place. Excess cement was removed. The polyethylene spacer was then implanted and locked into position. Patellar component was then applied in a similar technique and the patellar clamp was used to hold patella in place while the cement hardened. The knee was held in full extension while the cement hardened. Once the cement had fully hardened, the knee was reinspected. Any other cement extrusion was removed the final range of motion testing showed range of motion from 0-130 with excellent stability, both medial and laterally and appropriate alignment of the leg. Patella tracked normally. After the cemented hardened, the tourniquet was released and hemostasis was obtained. A second gram of transexamic acid was given intravenously. The knee was again irrigated. The knee was again taken through range of motion and found to be stable throughout all range of motion of 0-130, and the patella tracked normally. The fascia was then closed with 0 Vicryl followed by #2 strata fix suture. The subcutaneous tissue was closed with 3-0 Vicryl and 3-0 strata fix. Exofin glue was used for the skin and placed with the knee in flexion. After the glue had dried, and Optafoam silver impregnated dressing was applied. A lightly compressive dressing was applied using web roll and Juanjo wrap. Patient was then transferred to the stretcher and taken to recovery room in stable condition. Sponge and needle counts were correct. The transport assistant PATTI Paez was required due the complexity surgery and the need for a skilled hand frame surgical elastic knitter. She assisted in positioning, draping, retraction, and closure of the wound.
[2023-12-20] MEDS ORDERED: NA PHOS,M-B/NA PHOS,DI-BA 133 ML ENEMA RECTAL PRN (11:00)
[2023-12-20] MEDS ORDERED: NALOXONE 0.4 MG/ML 1 ML VIAL IV PRN (11:00)
[2023-12-20] MEDS ORDERED: bisacodyL 10 MG SUPP RECTAL PRN (11:00)
[2023-12-20] MEDS ORDERED: ONDANSETRON 4 MG/2 ML VIAL IVP PRN (11:00)
[2023-12-20] MEDS ORDERED: MAGNESIUM HYDROXIDE 2,400 MG/30 ML CUP PO PRN (11:00)
[2023-12-20] MEDS: ROPIVACAINE 1,100 MG, SODIUM CHLORIDE 0.9% 500 ML 330 ML, EMPTY PAIN BALL 1 EACH MISCELLANE PRN (11:30)
--- NOTE | 2023-12-20 11:42 | XR ---
EXAMINATION TYPE: XR knee limited LT DATE OF EXAM: 12/20/2023 COMPARISON: None HISTORY: Post knee replacement TECHNIQUE: 2 view left knee FINDINGS: Tibial and femoral components have been placed. Postsurgical soft tissue changes are presen t. No acute fractures or dislocations evident. IMPRESSION: 1. No acute fractures post left knee replacement.
[2023-12-20] MEDS: SODIUM CHLORIDE 0.9% 1,000 ML IV SCH (14:09)
--- NOTE | 2023-12-20 17:29 | P.CONS ---
History of Present Illness - Reason for Consult Consult date: 12/20/23 Medical Management Requesting physician: Issa Barrientos - History of Present Illness History of Presenting Illness: Patient is a very pleasant 68-year-old female with a past medical history of hypertension, hypothyroidism, GERD, and osteoarthritis. She is currently admitted to orthopedic surgery team status post elective left total knee arthroplasty. Surgical procedure was completed by Dr. Barrientos secondary to severe osteoarthritis of left knee. We were consulted for medical management throughout hospitalization. Patient was seen and fully evaluated in room 450 after completion of surgical procedure. Patient currently reports only mild postoperative pain, describing as a very mild arthritic pain. She denies having any numbness or tingling. Movement and sensation of left lower extremity and toes intact. She denies having any postoperative nausea or vomiting and is tolerating oral intake with regular diet. Patient reports she has not yet voided since completion of surgical procedure but was just moved to room 450 and RN reports that she will monitor for postvoid residuals and ambulate patient to restroom shortly for attempts at voiding. Patient denies having any other complaints at this time including headache, lightheadedness, dizziness, chest pain, palpitations, shortness of breath, cough, or congestion. Review of systems: Pertinent positives and negatives as discussed in HPI, a complete review of systems was performed and all other systems are negative. Physical exam: Vital signs reviewed and stable. General: Nontoxic, no distress and appears stated age. Derm: Skin warm and dry, normal coloration for ethnicity. Head: Atraumatic, normocephalic and symmetric. Eyes: EOMs intact, no lid lag, and anicteric sclera Mouth: no lip lesions, mucus membranes moist Cardiovascular: regular rate and rhythm with normal S1S2, no murmur, positive posterior tibial pulses bilaterally, and cap refill < 2 seconds. Lungs: Respirations even, regular, and unlabored on room air. Lungs CTA bilaterally, no rhonchi, no rales, no wheezing, and no accessory muscle usage. Abdominal: soft, nontender to palpation, no guarding, no appreciable organomegaly Ext: No gross muscle atrophy, no edema, no contractures. Assessment and sensation intact. Postoperative dressing and ice packs in place to left lower extremity. Neuro: Speech clear, face symmetrical and CN II-XII grossly intact with no noted focal neuro deficits Psych: Alert and oriented to person, place, time, and situation. Appropriate and pleasant affect. Assessment and Plan of Care: Status post left total knee arthroplasty -Management per primary admitting orthopedic surgery team including DVT prophylaxis, pain management, wound/dressing management, weightbearing, and PT/OT. -Currently on DVT prophylaxis with aspirin 325 mg twice daily. Hypertension -Monitor vital signs and continue daily medication regimen with lisinopril 5 mg daily. Hypothyroidism -Continue daily medication regimen with levothyroxine 100 mcg daily. GERD -Patient started on GI prophylaxis with Protonix 40 mg daily. Data and imaging reviewed: Vital signs reviewed. Blood pressure 118/69, heart rate 78, respiratory rate 16, temp 97.3 F, and SpO2 of 96% on room air. Preoperative labs reviewed that were completed on 12/01/2023 showing a WBC count of 4.84, hemoglobin of 14.2, and platelet count of 235. Coagulation pr ofile was normal findings. BMP was unremarkable. TSH was low at 0.302. Will place order for repeat TSH with free T4. Thank you for allowing us to participate in the care of this pleasant patient. Do not hesitate to contact us with questions. Someone can be reached from the [facility] all hours of the day at [phone] or via [email or web address] serve. Patient was seen independently by Nurse Practitioner. This document was prepared using [employer] dictation software. Please allow for errors in dental office receptionist while rare they do occur. I reviewed the documentation as provided by the EMRE above, who is the original author of this note. I agree with the documented assessment and plan, with the following changes: none Past Medical History Past Medical History: GERD/Reflux, Hyperlipidemia, Hypertension, Osteoarthritis (OA), Thyroid Disorder Additional Past Medical History / Comment(s): Hypothyroidism. Osteopenia. arthritis neck back and knee, post op soreness to rt foot. 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 Bilateral foot surgery. Past Anesthesia/Blood Transfusion Reactions: No Reported Reaction Additional Past Anesthesia/Blood Transfusion Reaction / Comm: slow to wake Past Psychological History: Anxiety Additional Psychological History / Comment(s): regarding procedure. Smoking Status: Never smoker Past Alcohol Use History: None Reported Past Drug Use History: Marijuana Additional Drug Use History / Comment(s): pt uses cbd cream. pt aware not to use 24 hrs before procedure - Past Family History Mother Family Medical History: No Reported History Additional Family Medical History / Comment(s): arthritis Father Family Medical History: Myocardial Infarction (NH) Medications and Allergies Home Medications Medication Instructions Recorded Confirmed Type L.acidoph,Paracasei, B.lactis 1 each PO DAILY 01/28/16 12/14/23 History [Probiotic] Digestive Enzymes 1 tab PO DAILY 03/09/18 12/14/23 History Glucosamine Sulfate 500 mg PO DAILY 03/09/18 12/14/23 History Levothyroxine Sodium [Synthroid] 100 mcg PO QAM 03/09/18 12/14/23 History Vitamin C Gummies 1 tab PO DAILY 03/09/18 12/14/23 History Vitamin D3/Vitamin K2 1 tab PO DAILY 03/09/18 12/14/23 History Garlic 50 mg PO BID 04/07/22 12/14/23 History lisinopriL [Zestril] 5 mg PO PC-LUNCH 11/11/22 12/14/23 History Unk Aleve 1 tab PO DIRECTED PRN 12/14/23 12/14/23 History Unk Magnesium Citrate 1 tab PO DAILY 12/14/23 12/14/23 History Unk Vitamin E 1 tab PO DAILY 12/14/23 12/14/23 History Aspirin 325 mg PO BID #60 tab 12/20/23 Rx HYDROcodone/APAP 7.5-325MG [Upperco 1 - 2 tab PO Q6H PRN #32 tab 12/20/23 Rx 7.5-325] Sennosides [Senokot] 2 tab PO DAILY PRN #60 tablet 12/20/23 Rx Allergies Allergy/AdvReac Type Severity Reaction Status Date / Time No Known Allergies Allergy Verified 12/20/23 07:40 Physical Exam Vitals: Vital Signs Temp Pulse Pulse Resp BP Pulse Ox 12/20/23 14:30 97.3 F L 78 16 118/69 96 12/20/23 14:00 84 18 122/64 98 12/20/23 13:30 65 18 126/60 96 12/20/23 13:00 65 18 131/59 96 12/20/23 12:30 62 16 125/59 95 12/20/23 12:00 67 16 137/69 95 12/20/23 11:47 67 16 124/68 95 12/20/23 11:31 67 16 110/57 95 12/20/23 11:15 80 16 113/56 95 12/20/23 10:58 97.0 F L 82 16 107/61 95 12/20/23 08:40 62 14 143/67 98 12/20/23 08:20 63 14 141/79 100 12/20/23 07:46 80.6 F L 75 16 141/79 100 Intake and Output 12/20/23 12/20/23 12/20/23 06:59 14:59 22:59 Intake Total 1051 Output Total 25 Balance 1026 Intake: IV 1051 Output: Estimated Blood Loss 25 Other: Weight 80.6 kg
[2023-12-20] MEDS: HYDROcodone/APAP 7.5-325MG 1 EACH TAB PO PRN (18:01)
[2023-12-20] MEDS: SENNOSIDES-DOCUSATE SODIUM 1 EACH TAB PO SCH (20:31)
[2023-12-20] MEDS: ASPIRIN 325 MG TAB PO SCH (20:31)
[2023-12-20 21:40] LABS: T4, Free (Free Thyroxine) 1.12 ng/dL (0.78-2.19)
[2023-12-21 01:53] VITALS: TEMP 97.7
[2023-12-21] MEDS: HYDROcodone/APAP 7.5-325MG 1 EACH TAB PO PRN (04:13)
[2023-12-21 05:43] VITALS: RESP 16
[2023-12-21] MEDS: LEVOTHYROXINE 100 MCG TAB PO SCH (06:29)
[2023-12-21] MEDS: PANTOPRAZOLE 40 MG TABLET PO SCH (06:29)
[2023-12-21 08:17] VITALS: BP 124/70; PULSE 54
[2023-12-21] MEDS: LACTOBACILLUS ACIDOPHILUS/PECT 1 EACH CAPSULE PO SCH (08:27)
[2023-12-21 08:55] LABS: Basophils # (A) 0.03 X 10*3/uL (0.00-0.10); Basophils % (A) 0.2 %; Eosinophils # (A) 0 X 10*3/uL (0.04-0.35); Eosinophils % (A) 0 %; HCT 36.5 % (37.2-46.3); HGB 12.1 g/dL (12.0-15.0); Lymphocytes # (A) 1.02 X 10*3/uL (0.90-5.00); Lymphocytes % (A) 8.1 %; MCH 30.8 pg (27.0-32.0); MCHC 33.2 g/dL (32.0-37.0); MCV 92.9 FL (80.0-97.0); Mean Platelet Volume 11.5 FL (9.5-12.2); NRBC Per 100 WBC 0 X 10*3/uL (0.00-0.01); Neutrophils # (A) 10.43 X 10*3/uL (1.80-7.70); Neutrophils % (A) 83.2 %; Platelet Count 191 X 10*3/uL (140-440); RBC 3.93 X 10*6/uL (4.10-5.20); RDW 13.2 % (11.5-14.5); WBC 12.54 X 10*3/uL (4.50-10.00)
--- NOTE | 2023-12-21 10:25 | P.PN ---
Progress Note - Text Progress Note Date: 12/21/23 Postoperative day # 1 status post total knee arthroplasty, and adductor canal catheter placed for postoperative analgesia, currently at ropivacaine 0.2% 8 mL per hour and continuous infusion, visual analogue scale is 4/10 patient using oral pain medication for breakthrough pain. Assessment and plan= Acute postoperative pain, adductor canal catheter for pain control, pain is well controlled we'll continue the same management.
[2023-12-21 12:09] LABS: Magnesium 1.9 mg/dL (1.5-2.4)
[2023-12-21 12:11] LABS: BUN/Creat Ratio 13.33 Ratio (12.00-20.00); Calcium 8.7 mg/dL (8.7-10.3); Chloride 108 mmol/L (96-109); Glucose 114 mg/dL (70-110); Potassium 4.1 mmol/L (3.5-5.5); Sodium 144 mmol/L (135-145)
--- NOTE | 2023-12-21 12:36 | P.DS ---
Providers Expected date of discharge: 12/21/23 Attending physician: Issa Barrientos Consults: 12/20/23 11:00 Consult Physician Routine Consulting Provider: Ana Lima Consult Reason/Comments: medical management Do you want consulting provider notified?: Yes Primary care physician: Rosa Glaser MD - Discharge Diagnosis(es) (1) Osteoarthritis of left knee Current Visit: Yes Status: Acute (2) Status post total left knee replacement Current Visit: Yes Status: Acute Hospital Course: This is a 68-year-old female with known history of degenerative arthritis of the left knee. The patient presented for evaluation as an outpatient. After disc ussion and consideration patient elects to proceed with total knee arthroplasty. The patient is seen preoperatively by Dr. Barrientos and medically cleared for surgery by their primary care physician. Patient is admitted to [facility] on 12/20/2023 for total knee arthroplasty. The procedure is performed without complication or sequelae. The patient is doing well postoperatively. Labs and vital signs are stable on day of discharge. On day of discharge patient's knee incision is healing well. There is minimal erythema. There is no drainage noted at this time. There is minimal soft tissue swelling to the knee. Patient has full foot and ankle motion without difficulty or pain. Calf is soft and nontender to palpation. Neurovascular status to the left lower extremity is intact. Patient is discharged home in good condition. Please see med rec for accurate list of home medications. Plan - Discharge Summary Discharge Rx Participant: No New Discharge Prescriptions: New Aspirin 325 mg PO BID #60 tab HYDROcodone/APAP 7.5-325MG [[place] 7.5-325] 1 - 2 tab PO Q6H PRN #32 tab PRN Reason: Pain Sennosides [Senokot] 2 tab PO DAILY PRN #60 tablet PRN Reason: Constipation No Action L.acidoph,Paracasei, B.lactis [Probiotic] 1 each PO DAILY Digestive Enzymes 1 tab PO DAILY Vitamin D3/Vitamin K2 1 tab PO DAILY Vitamin C Gummies 1 tab PO DAILY Glucosamine Sulfate 500 mg PO DAILY Levothyroxine Sodium [Synthroid] 100 mcg PO QAM lisinopriL [Zestril] 5 mg PO PC-LUNCH Garlic 50 mg PO BID Unk Vitamin E 1 tab PO DAILY Unk Aleve 1 tab PO DIRECTED PRN PRN Reason: Pain Unk Magnesium Citrate 1 tab PO DAILY Discharge Medication List L.acidoph,Paracasei, B.lactis [Probiotic] 1 each PO DAILY 01/28/16 [History] Digestive Enzymes 1 tab PO DAILY 03/09/18 [History] Glucosamine Sulfate 500 mg PO DAILY 03/09/18 [History] Levothyroxine Sodium [Synthroid] 100 mcg PO QAM 03/09/18 [History] Vitamin C Gummies 1 tab PO DAILY 03/09/18 [History] Vitamin D3/Vitamin K2 1 tab PO DAILY 03/09/18 [History] Garlic 50 mg PO BID 04/07/22 [History] lisinopriL [Zestril] 5 mg PO PC-LUNCH 11/11/22 [History] Unk Aleve 1 tab PO DIRECTED PRN 12/14/23 [History] Unk Magnesium Citrate 1 tab PO DAILY 12/14/23 [History] Unk Vitamin E 1 tab PO DAILY 12/14/23 [History] Aspirin 325 mg PO BID #60 tab 12/20/23 [Rx] HYDROcodone/APAP 7.5-325MG [[place] 7.5-325] 1 - 2 tab PO Q6H PRN #32 tab 12/20/23 [Rx] Sennosides [Senokot] 2 tab PO DAILY PRN #60 tablet 12/20/23 [Rx] Follow up Appointment(s)/Referral(s): [facility],Equipment [NON-STAFF] - As Needed (*Call [facility] once home to arrange deliver of the Continuous Passive Motion (CPM) machine.) [facility], [NON-STAFF] - 1-2 Days ([facility] will call you to set up your in home physical therapy visits. ) Issa Barrientos DO [Doctor of Osteopathic Medicine] - 01/05/24 1:00 pm (With Jaja) Michael Joaquin PAC [Family Provider] - 1 Week (office not answering please call to schedule appointment ) Patient Instructions/Handouts: Knee Replacement (DC) Activity/Diet/Wound Care/Special Instructions: Weightbearing as tolerated with a walker. CPM 5-6h daily as tolerated. Leave dressing intact. Dressing may be removed by home care nurse or by patient in 7 days. Then change dressing twice daily until follow up. May shower with initial dressing intact and after removal. If dressing become saturated, please remove. Recommend use of compression stockings daily until follow up to help prevent swelling and blood clots. May remove at night before sleeping. Please take aspirin 325mg twice daily for 30 days to prevent blood clots. Please follow up with [facility] and call with any questions or concerns, . Discharge Disposition: HOME WITH HOME HEALTH SERVICES
[2023-12-21] MEDS ORDERED: lisinopriL 5 MG TAB PO SCH (13:30)
--- NOTE | 2023-12-21 13:58 | P.PN ---
Subjective Progress Note Date: 12/21/23 Hospital Course: Patient is a very pleasant 68-year-old female with a past medical history of hypertension, hypothyroidism, GERD, and osteoarthritis. She is currently admitted to orthopedic surgery team status post elective left total knee arthroplasty. Surgical procedure was completed by Dr. Barrientos secondary to severe osteoarthritis of left knee. We were consulted for medical management throughout hospitalization. Physical exam: Patient seen and fully evaluated at bedside this morning. She is postoperative day 1 and appears to be doing well. Patient does report moderate postoperative pain at this time she just completed working with PT. Patient awaiting medication by RN at this time. She denies having any other complaints including headache, lightheadedness, dizziness, chest pain, palpitations, shortness of breath, or experiencing any numbness/tingling/weakness. Patient reports urinating without any difficulties and denies ever experiencing any postoperative nausea or vomiting. Vital signs reviewed and stable. General: Nontoxic, no distress and appears stated age. Derm: Skin warm and dry, normal coloration for ethnicity. Head: Atraumatic, normocephalic and symmetric. Eyes: EOMs intact, no lid lag, and anicteric sclera Mouth: no lip lesions, mucus membranes moist Cardiovascular: regular rate and rhythm with normal S1S2, no murmur, positive posterior tibial pulses bilaterally, and cap refill < 2 seconds. Lungs: Respirations even, regular, and unlabored on room air. Lungs CTA bilaterally, no rhonchi, no rales, no wheezing, and no accessory muscle usage. Abdominal: soft, nontender to palpation, no guarding, no appreciable organomegaly Ext: No gross muscle atrophy, no edema, no contractures. Assessment and sensation intact. Postoperative dressing in place to left lower extremity. Neuro: Speech clear, face symmetrical and CN II-XII grossly intact with no noted focal neuro deficits Psych: Alert and oriented to person, place, time, and situation. Appropriate and pleasant affect. Assessment and Plan of Care: Status post left total knee arthroplasty -Management per primary admitting orthopedic surgery team including DVT prophylaxis, pain management, wound/dressing management, weightbearing, and PT/OT. -Currently on DVT prophylaxis with aspirin 325 mg twice daily. Hypertension -Monitor vital signs and continue daily medication regimen with lisinopril 5 mg daily. Hypothyroidism -Continue daily medication regimen with levothyroxine 100 mcg daily. -TSH was low at 0.443 with a normal free T4 of 1.12.. Discussed with patient, no medication changes recommended at this time patient encouraged to have repeat thyroid function testing in 6 weeks by her PCP. GERD -Patient started on GI prophylaxis with Protonix 40 mg daily. Data and imaging reviewed: Postoperative labs reviewed. CBC showing mild leukocytosis with WBC count of 12.4 and a stable hemoglobin of 12.1. BMP showing hypocarbia with bicarb of 19.0 and elevated anion gap of 17.0. Blood glucose was 114. Magnesium 1.9. TSH was low at 0.443 with a normal free T4 of 1.12. Vital signs reviewed. Blood pressure 124/70, heart rate 54, respiratory rate 16, temp 97.7 F, and SpO2 of 97% on room air. Patient cleared from medical perspective for discharge once cleared by primary admitting orthopedic surgery team. Thank you for allowing us to participate in the care of this pleasant patient. Do not hesitate to contact us with questions. Someone can be reached from the [facility] hospitalist group all hours of the day at [phone] or via [employer]. Patient was seen independently by Nurse Practitioner. This document was prepared using [employer] dictation software. Please allow for errors in ground transportation operator while rare they do occur. Julius Gerber NP rendered care for this patient independently, reviewed the findi ngs and plan as documented in the note above. I did not physically speak with or examine the patient on this date. Objective - Vital Signs Vital signs: Vital Signs Temp 97.7 F 12/21/23 06:45 Pulse 54 L 12/21/23 06:45 Resp 16 12/21/23 06:45 BP 124/70 12/21/23 06:45 Pulse Ox 97 12/21/23 06:45 FiO2 Intake & Output 12/20/23 12/21/23 12/21/23 18:59 06:59 18:59 Intake Total 1051 1080 Output Total 25 Balance 1026 1080 Weight 80.6 kg Intake: IV 1051 Oral 1080 Output: Estimated Blood Loss 25 Other: Voiding Method Toilet # Voids 1 3 - Labs CBC & Chem 7: 12/21/23 04:05 12/21/23 04:05 Labs: Abnormal Lab Results - Last 24 Hours (Table) 12/20/23 Range/Units 18:59 TSH 0.443 L (0.465-4.680) mIU/L
== END 2023-12-21 12:54 | disposition home health service (06) ==
LOC: OR 07:25 → 4SSUR 13:58 → OR 12-21 12:54
PROVIDERS: ATTEND Orthopaedic Surgery
DX: M17.12 Unilateral primary osteoarthritis, left knee (principal); E03.9 Hypothyroidism, unspecified; E78.5 Hyperlipidemia, unspecified; G89.18 Other acute postprocedural pain; I10 Essential (primary) hypertension; K21.9 Gastro-esophageal reflux disease without esophagitis; M85.80 Other specified disorders of bone density and structure, unspecified site; Z79.82 Long term (current) use of aspirin; Z79.890 Hormone replacement therapy; Z79.899 Other long term (current) drug therapy; Z86.018 Personal history of other benign neoplasm; Z87.19 Personal history of other diseases of the digestive system; Z90.89 Acquired absence of other organs
CPT/HCPCS: 27447; 97161; 64999; 64448; 84439; 80048; 84443; 83735; 85025; 73560; C1713; C1776; C1751; J2250; J1100; J0690 ×3; J2405; J3010; J2795; J2704

== ENCOUNTER → 2024-04-18 | Outpatient (CLI) | payer MEDICARE ==
[2024-04-18 10:45] VITALS: BP 156/73; PULSE 58; RESP 16; TEMP 98.4
--- NOTE | 2024-04-18 11:42 | P.HPOB ---
History of Present Illness H&P Date: 04/18/24 Chief Complaint: The patient is here for her routine gynecologic exam and ma mmogram. This is a 69-year-old G2, P2 with an LMP of 2008. The patient is without gynecologic complaints and denies any postmenopausal bleeding. She states she will occasionally can get a charley horse type of cramp in the rectal area. She states this can occur at night or occasionally during the day. She applies some warmth to the area and this seems to relieve this. Review of Systems The patient has lost 14 pounds over the last year. She attributes the weight loss to decrease in appetite following her knee replacement surgery with the pain associated with it. She denies respiratory or cardiac problems. GI: She did have an decrease in appetite following her knee surgery, but this has improved. She has had occasional rectal spasms as in the HPI. Past Medical History Past Medical History: GERD/Reflux, Hyperlipidemia, Hypertension, Osteoarthritis (OA), Thyroid Disorder Additional Past Medical History / Comment(s): Hypothyroidism. Osteopenia. 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 Bilateral foot surgery. Left knee replacement surgery. Past Anesthesia/Blood Transfusion Reactions: No Reported Reaction Additional Past Anesthesia/Blood Transfusion Reaction / Comment(s): slow to wake Past Psychological History: No Psychological Hx Reported Additional Psychological History / Comment(s): regarding procedure. Smoking Status: Never smoker Past Alcohol Use History: Rare (1 drink per month.) Past Drug Use History: None Reported Additional Drug Use History / Comment(s): pt uses cbd cream. pt aware not to use 24 hrs before procedure Additional History: She has been since 1979 and is not sexually active. 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 She [place] in [place]. - Past Family History Mother Family Medical History: No Reported History Additional Family Medical History / Comment(s): arthritis Father Family Medical History: Myocardial Infarction (DE) Medications and Allergies Home Medications Medication Instructions Recorded Confirmed Type L.acidoph,Paracasei, B.lactis 1 each PO DAILY 01/28/16 04/18/24 History [Probiotic] Digestive Enzymes 1 tab PO DAILY 03/09/18 04/18/24 History Glucosamine Sulfate 500 mg PO DAILY 03/09/18 04/18/24 History Levothyroxine Sodium [Synthroid] 100 mcg PO QAM 03/09/18 04/18/24 History Vitamin C Gummies 1 tab PO DAILY 03/09/18 04/18/24 History Vitamin D3/Vitamin K2 1 tab PO DAILY 03/09/18 04/18/24 History Garlic 50 mg PO BID 04/07/22 04/18/24 History lisinopriL [Zestril] 5 mg PO PC-LUNCH 11/11/22 04/18/24 History Unk Magnesium Citrate 1 tab PO DAILY 12/14/23 04/18/24 History Unk Vitamin E 1 tab PO DAILY 12/14/23 04/18/24 History Aspirin 325 mg PO BID #60 tab 12/20/23 04/18/24 Rx Sennosides [Senokot] 2 tab PO DAILY PRN #60 tablet 12/20/23 04/18/24 Rx Allergies Allergy/AdvReac Type Severity Reaction Status Date / Time No Known Allergies Allergy Verified 04/18/24 10:42 Exam Vital Signs Temp Pulse Resp BP Pulse Ox 04/18/24 10:43 98.4 F 58 L 16 156/73 100 Intake and Output 04/17/24 04/18/24 04/18/24 22:59 06:59 14:59 Other: Weight 77.564 kg Height 5 feet 10 inches, weight 171 pounds, BMI 24.5. This is a well-developed well-nourished white female who is alert and oriented times 3 in no acute distress. HEENT: Within normal limits. NECK: Supple without mass or thyromegaly. CHEST AND LUNGS: Clear to auscultation. HEART: Regular rate and rhythm. BREASTS: Are without mass or discharge. AXILLARY EXAM: Negative for adenopathy. BACK: Negative for CVA tenderness. ABDOMEN: Soft, nontender, without palpable masses. PELVIC EXAM: External genitalia has areas of pallor on the inner aspects of the labia without excoriation or erythema. There is very smooth demarcation and this is symmetric and consistent with her previous exams. This is felt to be consistent with vitiligo. Cervix and vagina appear normal with mild atrophy. There is no unusual discharge. There is no evidence of prolapse. The uterus is midposition, nongravid size and nontender. There are no palpable adnexal masses or tenderness. RECTAL EXAM: Rectovaginal exam is negative for mass or tenderness and is negative for occult blood. There is also some nonpigmented areas in the perianal region consistent with vitiligo and these do not appear inflamed. EXTREMITIES: Nontender. There are some nonpigmented areas on the inner thighs consistent with vitiligo. IMPRESSION: 1. 69-year-old menopausal female with stable vitiligo involving the vulva and inner thighs. Otherwise unremarkable gynecologic exam. 2. History of a right ovarian cyst measuring approximately 2.4 cm by ultrasound last done in November 2023. 3. Small endometrial fluid was also noted by ultrasound. 4. History of osteopenia. PLAN: 1. Pap smears have been discontinued. 2. Self breast awareness was discussed with the patient. We have also discussed symptoms associated with inflammatory breast cancer. 3. Screening mammogram will be done today. 4. Osteoporosis prevention was discussed. Repeat bone density testing will be done today. 5. Yearly pelvic ultrasound because of the benign right ovarian cyst and small endometrial fluid. She will do this around November 2024. The order slip was given to the patient for this. 6. She was advised to return in one year for her annual well woman exam.
--- NOTE | 2024-04-21 22:54 | MM ---
Reason for Exam: Screening (asymptomatic). Last screening mammogram was performed 12 month(s) ago. Patient History: Menarche at age 14. First Full-Term at age 27. Postmenopausal. Patient has history of breast feeding. Progesterone for 3 years, 6 months. 03/14/2012, Benign Core Biopsy on the right side. Risk Values: Joan 5 year model risk: 2.1%. NCI Lifetime model risk: 5.8%. Prior Study Comparison: 03/18/2021 Bilateral Screening Mammogram, [facility]. 04/07/2022 Bilateral MG 3D screening mammo w/cad, [facility]. 04/13/2023 Bilateral MG 3D screening mammo w/cad, [facility]. Tissue Density: There are scattered areas of fibroglandular density. Findings: Analyzed By CAD. The pattern is symmetrical. Pattern is stable. Benign punctate calcifications are scattered bilaterally. A surgical clip is within the right breast. Chronic nodularity is within the right breast No suspicious groups of microcalcifications, spiculated or lobular masses, architectural distortion or other secondary signs of malignancy are mammographically apparent. Overall Assessment: Benign, BI-RAD 2 Management: Screening Mammogram of both breasts in 1 year. A negative mammogram report should not preclude additional follow up of suspicious palpable abnormalities. Patient should continue monthly self breast exam. A clinical breast exam by your physician is recommended on an annual basis and results should be correlated with mammographic findings. Note on Joan scores and lifetime risk: 1. A Joan score greater than 3% is considered moderate risk. If this is the case, consider specialist referral to assess eligibility for a risk reducing agent. 2. If overall lifetime risk for the development of breast cancer is 20% or higher, the patient may qualify for future screening with alternating mammogram and breast MRI. [facility], , 04/21/2024 10:51 PM. Electronically signed and approved by: Fabrice Singh D.O. Radiologis
--- NOTE | 2024-04-23 22:17 | BD ---
EXAMINATION TYPE: Axial Bone Density DATE OF EXAM: 04/18/2024 CLINICAL HISTORY: 69 years old Female. ICD-10 CODE: Z780 POST JUAN , Additional History: Height: 68 Weight: 167 FRAX RISK QUESTIONS: Family History (Parent hip fracture): yes History of Fracture in Adulthood: yes 3. 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 Bone mineral density as measured about the Lumbar spine is: ----- L1-L4(G/cm2): 1.095 T Score Values are as follows: ----- L1: -1.0 ----- L2: -0.7 ----- L3: -0.8 ----- L4: -0.5 ----- L1-L4: -0.7 Z Score Values are as follows: ----- L1: 0.4 ----- L2: 0.6 ----- L3: 0.5 ----- L4: 0.9 ----- L1-L4: 0.6 Bone mineral density has: Increased 0.6% since study of: 09.23.2021 Bone mineral density about the R hip (g/cm2): 0.743 Bone mineral density about the L hip (g/cm2): 0.697 T Score values are as follows: -----R Neck: -1.3 -----L Neck: ` -2.0 -----R Total: -2.1 -----L Total: -2.5 Z Score values are as follows: -----R Neck: 0.2 -----L Neck: -0.5 -----R Total: -0.8 -----L Total: -1.2 Bone mineral density has: Decreased -7.0% since study of: 09.23.2021 FRAX%s: The graph provided illustrates a 30.3% chance for a major osteoporotic fx and a 9.9% chance f or the hips probability for fx in 10 years time. IMPRESSION: Osteopenia (T Score between -2.5 and -1). There is slightly increased risk of fracture and the patient may be considered for treatment. Re-Screen 2-5 years. NOTE: T-SCORE=SD OF THE YOUNG ADULT MEAN. [facility], , 04/23/2024 10:15 PM
--- NOTE | 2024-04-26 14:47 | P.PN ---
Progress Note - Text Progress Note Date: 04/26/24 OUTPATIENT FOLLOW-UP NOTE TEST(S)/RESULTS: Test results from 04/18/2024 include benign mammogram and bone density test showing osteopenia. There was a fair decrease in the hip measurements compared to her 2021 bone density test. METHOD OF NOTIFICATION: The patient was notified by phone on 04/26/2024. PATIENT COMMENTS: She thinks the decrease may have been related to stopping dairy. She had been working with her holistic person and someone had suggested stopping dairy products. DIAGNOSIS: Worsening osteopenia with benign mammogram. DISCUSSION: We have discussed how a decrease in bone density can increase the risk for bone fracture. I have offered prescription medication for this. She is declining it at this time. She would like to further talk with her holistic person regarding getting calcium and possibly reintroducing dairy products to her diet. I have stressed the importance of adequate calcium, vitamin D, and regular exercise. We will plan on repeating the bone density test in 2 years. PLAN: As above.
== END | disposition home or self-care (01) ==
LOC: WWCWWP 10:32
PROVIDERS: ATTEND Obstetrics & Gynecology
DX: Z12.31 Encounter for screening mammogram for malignant neoplasm of breast (principal); M85.80 Other specified disorders of bone density and structure, unspecified site; N83.201 Unspecified ovarian cyst, right side; L80 Vitiligo; Z78.0 Asymptomatic menopausal state
CPT/HCPCS: 77063; 77067; 77080

== ENCOUNTER → 2025-01-01 | Outpatient (CLI) | payer MEDICARE ==
--- NOTE | 2025-01-01 13:53 | US ---
EXAMINATION TYPE: US pelvis complete transvag DATE OF EXAM: 01/01/2025 COMPARISON: NONE CLINICAL INDICATION: Female, 69 years old with history of N83.00 FOLLICULAR CYST OF OVARY, UNSPECIFIE D SIDE; Hx right ovarian cyst and endometrial fluid TECHNIQUE: Transvaginal (TV) and Transabdominal (TA) . Transabdominal grayscale sonographic images of the pelvis were acquired. Transvaginal sonographic im ages were ordered as well Doppler imaging: Color Doppler Images were obtained. FINDINGS: Date of LMP: 20 years ago EXAM MEASUREMENTS: Uterus: 5.6 x 2.9 x 5.2 cm Endometrial Stripe: 5.2 cm Right Ovary: 4.2 x 2.7 x 3.4 cm cm Left Ovary: 2.1 x 2.4 x 2.3 cm cm 1. Uterus: Anteverted wnl 2. Endometrium: Fluid redemonstrated, ? polyps vs calcified areas within. 3. Right Ovary: Simple cyst redemonstrated 4. Left Ovary: Simple cyst seen 5. Bilateral Adnexa: WNL 6. Posterior cul-de-sac: WNL IMPRESSION: Endometrial fluid and probable polyps. Consider direct visualization. O-RADS 2021 [email or web address] [facility], , 01/01/2025 1:51 PM
== END | disposition home or self-care (01) ==
LOC: RADUSWWP 13:07
PROVIDERS: ATTEND Obstetrics & Gynecology
DX: N83.01 Follicular cyst of right ovary (principal); R93.89 Abnormal findings on diagnostic imaging of other specified body structures
CPT/HCPCS: 76830; 76856